=== PATIENT | female | born 1990 | race Caucasian/White ===

== ENCOUNTER 2016-09-02 16:17 | Emergency (ER) | payer OTHER ==
[~2016-09-02] VITALS: Ht 165.1 cm; Wt 84.0 kg
[~2016-09-02 16:17] MED LIST: BUDE100T PO; CLON.1 PO; SERO50TA4 PO; SUBO8MIS SL; ZOFR4TAB3 SL; ZOLO20CO PO
[2016-09-02 16:38] VITALS: BP 108/59; PULSE 97; RESP 18; TEMP 97.7; O2SAT 98
--- NOTE | 2016-09-02 16:48 | PD ---
HPI Chief Complaint: Psychiatric Symptoms Time Seen by Provider: 16:48 Travel History International Travel<30 days: No Contact w/Intl Traveler<30days: No Traveled to known affect area: No History of Present Illness HPI 26-year-old female with a history of bipolar disorder, IVDU, hepatitis C is brought to the emergency department for evaluation of suicidal ideations. Per the Childers Act report the patient was involved in an argument with her mother and said that she wants to kill herself. The patient denies suicidal or homicidal ideations. Denies any attempts to harm herself. Denies any ingestion substances in an attempt to harm herself. She is initially combative and aggressive with staff and is placed in restraints. She denies any physical complaints. Denies any chest pain, shortness of breath, abdominal pain, nausea , vomiting, diarrhea. No other complaints. PFSH Past Medical History Anxiety: Yes Depression: Yes Cardiovascular Problems: Yes (HTN) Diminished Hearing: No Gastrointestinal Disorders: Yes Hepatitis: Yes (B OR C) Hypertension: Yes Kidney Stones: Yes Integumentary: Yes (MRSA FACE) Immunizations Current: Yes ?: Unknown Menopausal: No : 0 Para: 0 Miscarriage: 0 : 0 Social History Alcohol Use: No Tobacco Use: Yes (1/2 PPD) Substance Use: No (FORMER) Allergies-Medications (Allergen,Severity, Reaction): Coded Allergies: No Known Allergies (Verified , 07/04/15) Reported Meds & Prescriptions Reported Meds & Active Scripts Active Zofran ODT (Ondansetron HCl) 4 Mg Tab 4 Mg SL Q6H PRN FOR NAUSEA/VOMITING Reported Suboxone 8 mg/2 mg 8 mg/2 mg Subl 2 Strip SL DAILY SUBLINGUAL STRIP. Catapres 0.1 mg (Clonidine HCl) 0.1 Mg Tab 1 Tab PO HS Zoloft (Sertraline HCl) 20 Mg/Ml Con 50 Mg PO DAILY Bupropion Hcl (Bupropion HCl) 100 Mg Tab 150 Mg PO DAILY Seroquel XR 50 mg (Quetiapine Fumarate) 50 Mg Tab 50 Mg PO HS Review of Systems Except as stated in HPI: all other systems reviewed are Neg Physical Exam Narrative GENERAL: Well-nourished and well-developed pleasant patient in no acute distress who is nontoxic appearing. SKIN: Warm and dry. HEAD: Normocephalic and atraumatic EYES: No injection, drainage, or hyphema noted. PERRLA. EOMI. ENT: No nasal drainage noted. Oropharynx is clear. NECK: Supple and the trachea is midline. CARDIOVASCULAR: Regular rate and rhythm. RESPIRATORY: Breath sounds are equal bilaterally with no accessory muscle use, wheezing, rhonchi, or crackles. GASTROINTESTINAL: Abdomen is soft, non-tender, and nondistended. MUSCULOSKELETAL: No obvious deformities, swelling, cyanosis, or ecchymosis is present throughout the upper and lower extremities. Patient has full range of motion without any signs of neurovascular compromise. NEUROLOGICAL: Awake, alert, and oriented. Normal speech and gait. Cranial nerves are grossly intact. Data Data Last Documented VS Vital Signs Date Time Temp Pulse Resp B/P Pulse Ox O2 Delivery O2 Flow Rate FiO2 09/02/16 16:38 97.7 97 18 108/59 98 Orders Restraints Violent (09/02/16 16:41) Complete Blood Count With Diff (09/02/16 16:42) Comprehensive Metabolic Panel (09/02/16 16:42) Psych Screen (09/02/16 16:42) Drug Screen, Random Urine (09/02/16 16:42) Alcohol (Ethanol) (09/02/16 16:42) Ed Urine Pregnancytest Poc (09/02/16 16:42) Haloperidol Inj (Haldol Inj) (09/02/16 17:00) Lorazepam Inj (Ativan Inj) (09/02/16 17:00) Diphenhydramine Inj (Benadryl Inj) (09/02/16 17:00) Labs Laboratory Tests Test 09/02/16 17:15 White Blood Count 5.3 TH/MM3 Red Blood Count 4.98 MIL/MM3 Hemoglobin 12.0 GM/DL Hematocrit 37.0 % Mean Corpuscular Volume 74.3 FL Mean Corpuscular Hemoglobin 24.1 PG Mean Corpuscular Hemoglobin 32.5 % Concent Red Cell Distribution Width 16.3 % Platelet Count 278 TH/MM3 Mean Platelet Volume 8.0 FL Neutrophils (%) (Auto) 61.7 % Lymphocytes (%) (Auto) 28.1 % Monocytes (%) (Auto) 4.4 % Eosinophils (%) (Auto) 4.9 % Basophils (%) (Auto) 0.9 % Neutrophils # (Auto) 3.2 TH/MM3 Lymphocytes # (Auto) 1.5 TH/MM3 Monocytes # (Auto) 0.2 TH/MM3 Eosinophils # (Auto) 0.3 TH/MM3 Basophils # (Auto) 0.0 TH/MM3 CBC Comment DIFF FINAL Differential Comment Sodium Level 139 MEQ/L Potassium Level 3.5 MEQ/L Chloride Level 104 MEQ/L Carbon Dioxide Level 24.9 MEQ/L Anion Gap 10 MEQ/L Blood Urea Nitrogen 11 MG/DL Creatinine 0.90 MG/DL Estimat Glomerular Filtration 76 ML/MIN Rate Random Glucose 94 MG/DL Calcium Level 9.5 MG/DL Total Bilirubin 0.5 MG/DL Aspartate Amino Transf 22 U/L (AST/SGOT) Alanine Aminotransferase 23 U/L (ALT/SGPT) Alkaline Phosphatase 69 U/L Total Protein 7.7 GM/DL Albumin 3.7 GM/DL Ethyl Alcohol Level LESS THAN 3 MG/DL MDM Medical Decision Making Medical Screen Exam Complete: Yes Emergency Medical Condition: Yes Differential Diagnosis Differential: Depression versus adjustment reaction versus anxiety versus PTSD versus psychosis NOS versus mood disorder NOS versus substance induced mood disorder versus ODD versus adjustment reaction versus schizophrenia versus bipolar disorder versus schizoaffective versus electrolyte abnormality Narrative Course Patient presents under a Childers act. Physical examination and vital signs are essentially unremarkable. Patient has no medical complaints to report. She was initially combative and was placed in restraints. She is administered Haldol 5 mg IM, Ativan 2 mg IM and Benadryl 50 mg IM. Psych screen has been ordered. The laboratory results are unremarkable for any acute abnormalities. The patient is medically cleared for psychiatric evaluation and disposition. Diagnosis Primary Impression: Mood disorder Adela Zuñiga Sep 02, 2016 16:48
[2016-09-02] MEDS ORDERED: LORazepam 2 MG/ML VIAL IM ONE (17:00)
[2016-09-02] MEDS ORDERED: diphenhydrAMINE HCL 50 MG/ML VIAL IM ONE (17:00)
[2016-09-02] MEDS ORDERED: HALOPERIDOL LACTATE 5 MG/ML AMP IM ONE (17:00)
[2016-09-02 17:54] LABS: AUTOMATED NEUTROPHIL # 3.2 TH/MM3 (1.8-7.7); BASOPHIL % 0.9 % (0.0-2.0); EOSINOPHIL # 0.3 TH/MM3 (0-0.4); EOSINOPHIL % 4.9 % (0.0-4.0); HEMO FLAGS DIFF FINAL; LYMPH % 28.1 % (9.0-44.0); LYMPHOCYTE # 1.5 TH/MM3 (1.0-4.8); MEAN CELL VOLUME 74.3 FL (80.0-100.0); MEAN CORPUSCULAR HEMOGLOBIN 24.1 PG (27.0-34.0); MEAN CORPUSCULAR HGB CONC 32.5 % (32.0-36.0); MONO % 4.4 % (0.0-8.0); NEUT % 61.7 % (16.0-70.0); PLATELET COUNT 278 TH/MM3 (150-450); RED BLOOD COUNT 4.98 MIL/MM3 (4.00-5.30); RED CELL DISTRIBUTION WIDTH 16.3 % (11.6-17.2); WHITE BLOOD COUNT 5.3 TH/MM3 (4.0-11.0)
[2016-09-02 18:24] LABS: ALT (GPT) 23 U/L (10-53)
[2016-09-02 18:27] LABS: ALKALINE PHOSPHATASE 69 U/L (45-117); TOTAL BILIRUBIN ADULT 0.5 MG/DL (0.2-1.0)
[2016-09-02 18:37] LABS: ANION GAP 10 MEQ/L (5-15); AST (GOT) 22 U/L (15-37); BICARBONATE 24.9 MEQ/L (21.0-32.0); BLOOD UREA NITROGEN 11 MG/DL (7-18); CHLORIDE 104 MEQ/L (98-107); GLOMERULAR FILTRATION RATE 76 ML/MIN (>89); POTASSIUM 3.5 MEQ/L (3.5-5.1); SODIUM (NA) 139 MEQ/L (136-145)
[2016-09-02 19:10] VITALS: BP 110/67; PULSE 72; RESP 16; O2SAT 99
[2016-09-03 04:29] LABS: AMPHETAMINE, URINE NEG (NEG); BARBITURATES, URINE NEG (NEG); COCAINE, URINE POS (NEG)
[2016-09-03 06:20] VITALS: BP 100/57; PULSE 55; RESP 17; O2SAT 98
[2016-09-03 10:41] VITALS: BP 120/63; PULSE 65; RESP 16; O2SAT 97
[2016-09-03] MEDS ORDERED: IBUPROFEN 600 MG TAB PO ONE (12:00)
--- NOTE | 2016-09-03 13:27 | PD ---
History of Present Illness Chief Complaint: Psychiatric Symptoms Time Seen by Provider: 13:15 Travel History International Travel<30 Days: No Contact w/Intl Traveler<30days: No Known affected area: No Legal Status Legal Status: Childers Act Childers Act Signed By: Darron Childers Act Comment: 2016 @ 8929 History of Present Illness: 26-year-old female who got into a verbal argument with her mother last night and threatened to kill herself. Mother called police and she was Childers acted for making these threats. She was also apparently very uncooperative, physically aggressive, requiring physical restraints in the emergency department. Patient states she argues with her mother frequently and that she does not hold down a job or support herself. Second problem is that the patient has a significant history of drug abuse, including IV drug abuse. She does not wish to stop using drugs and does not wish to have assistance for this issue at this time. This physician does recommend her for [facility] but explained this is not a facility at [facility] which is licensed for detox or rehabilitation. At this time the patient is verbally gerardo for safety. She denies any suicidal or homicidal ideation, plan or intent. Her cognition is intact and she has no psychotic symptoms. PFSH Past Medical History Anxiety: Yes Depression: Yes Cardiovascular Problems: Yes (HTN) Diminished Hearing: No Gastrointestinal Disorders: Yes Hepatitis: Yes (B OR C) Hypertension: Yes Kidney Stones: Yes Integumentary: Yes (MRSA FACE) Immunizations Current: Yes Tetanus Vaccination: Unknown Influenza Vaccination: No ?: Unknown Menopausal: No : 0 Para: 0 Miscarriage: 0 : 0 Psychiatric History Psychiatric History Hx Psychiatric Treatment: BI- POLAR DISORDER PER PATIENT STATEMENT. The patient shows no significant evidence of bipolar depression or tye at this time. History of Inpatient Treatment: Yes Guns or firearms in home: No Social History Hx Alcohol Use: No Hx Tobacco Use: Yes (1/2 PPD) Hx Substance Use: Yes Substance Use Type: Heroin, Synth Opiates-Pain Pills Hx of Substance Use Treatment: Yes Allergies-Medications (Allergen,Severity, Reaction): Coded Allergies: No Known Allergies (Verified , 09/03/16) Per pt. Reported Meds & Prescriptions Reported Meds & Active Scripts Active No Active Prescriptions or Reported Medications Review of Systems Except as stated in HPI: all other systems reviewed are Neg Exam Alert: Yes [place]: Person, Place, Date, Situation Mood: Calm Affect: Appropriate Speech: Clear, Logical Eye Contact: Normal Memory Intact: Immediate, Recent, Remote Insight/Judgement Impaired but adequate. MDM Medical Decision Making Medical Record Reviewed: Yes Assessment/Plan Childers act is being lifted and patient is being discharged home. This physician feels it is counter therapeutic to admit the patient when she does not want assistance with alcohol and drug abuse which appears to be a primary problem. Her relationship issues with her mother can be worked out on an outpatient basis. Despite the patient's recent aggression and suicidal threats, this physician feels it is counter therapeutic to admit her. Orders Restraints Violent (09/02/16 16:41) Complete Blood Count With Diff (09/02/16 16:42) Comprehensive Metabolic Panel (09/02/16 16:42) Psych Screen (09/02/16 16:42) Drug Screen, Random Urine (09/02/16 16:42) Alcohol (Ethanol) (09/02/16 16:42) Ed Urine Pregnancytest Poc (09/02/16 16:42) Haloperidol Inj (Haldol Inj) (09/02/16 17:00) Lorazepam Inj (Ativan Inj) (09/02/16 17:00) Diphenhydramine Inj (Benadryl Inj) (09/02/16 17:00) Diet Regular Basic (09/03/16 Breakfast) Diet Regular Basic (09/03/16 Lunch) Ibuprofen (Motrin) (09/03/16 12:00) Results Vital Signs Date Time Temp Pulse Resp B/P Pulse Ox O2 Delivery O2 Flow Rate FiO2 09/03/16 10:41 65 16 120/63 97 Room Air 09/03/16 06:20 55 17 100/57 98 Room Air 09/02/16 19:10 72 16 110/67 99 Room Air 09/02/16 16:38 97.7 97 18 108/59 98 Laboratory Tests Test 09/02/16 09/03/16 17:15 03:25 White Blood Count 5.3 Red Blood Count 4.98 Hemoglobin 12.0 Hematocrit 37.0 Mean Corpuscular Volume 74.3 Mean Corpuscular Hemoglobin 24.1 Mean Corpuscular Hemoglobin 32.5 Concent Red Cell Distribution Width 16.3 Platelet Count 278 Mean Platelet Volume 8.0 Neutrophils (%) (Auto) 61.7 Lymphocytes (%) (Auto) 28.1 Monocytes (%) (Auto) 4.4 Eosinophils (%) (Auto) 4.9 Basophils (%) (Auto) 0.9 Neutrophils # (Auto) 3.2 Lymphocytes # (Auto) 1.5 Monocytes # (Auto) 0.2 Eosinophils # (Auto) 0.3 Basophils # (Auto) 0.0 CBC Comment DIFF FINAL Differential Comment Sodium Level 139 Potassium Level 3.5 Chloride Level 104 Carbon Dioxide Level 24.9 Anion Gap 10 Blood Urea Nitrogen 11 Creatinine 0.90 Estimat Glomerular Filtration 76 Rate Random Glucose 94 Calcium Level 9.5 Total Bilirubin 0.5 Aspartate Amino Transf 22 (AST/SGOT) Alanine Aminotransferase 23 (ALT/SGPT) Alkaline Phosphatase 69 Total Protein 7.7 Albumin 3.7 Ethyl Alcohol Level LESS THAN 3 Urine Opiates Screen NEG Urine Barbiturates Screen NEG Urine Amphetamines Screen NEG Urine Benzodiazepines Screen NEG Urine Cocaine Screen POS Urine Cannabinoids Screen NEG Diagnosis Primary Impression: Adjustment disorder with mixed disturbance of emotions and conduct Additional Impression: Substance addiction Prescriptions No Active Prescriptions or Reported Meds Problem Qualifiers Salvatore Leavitt MD Sep 03, 2016 13:27
== END 2016-09-03 13:36 | disposition home or self-care (01) ==
LOC: NEDAMB 16:17 → NEPJ 09-03 13:36
DX: F43.25 Adjustment disorder with mixed disturbance of emotions and conduct (principal); F19.20 Other psychoactive substance dependence, uncomplicated
CPT/HCPCS: 80053; 80307; 84703; 85025; 96372; 99285; J1200; J1630; J2060

== ENCOUNTER 2017-04-12 08:38 | Emergency (ER) | payer OTHER | END 2017-04-12 09:43 | disposition home or self-care (01) | LOC: HOBED 08:38 | DX: O99.322 Drug use complicating pregnancy, second trimester (principal); F11.10 Opioid abuse, uncomplicated; O98.412 Viral hepatitis complicating pregnancy, second trimester; B18.2 Chronic viral hepatitis C; O99.342 Other mental disorders complicating pregnancy, second trimester; F32.9 Major depressive disorder, single episode, unspecified; Z3A.25 25 weeks gestation of pregnancy | CPT/HCPCS: 99283 ==

== ENCOUNTER 2017-04-18 12:36 | Emergency (ER) | payer OTHER ==
[~2017-04-18 12:36] MED LIST changes: +AUGM500T7 PO; -BUDE100T PO; +CITA10TA4 PO; +CITA20TA4 PO; -CLON.1 PO; -SERO50TA4 PO; -SUBO8MIS SL; -ZOFR4TAB3 SL; -ZOLO20CO PO
[2017-04-18 13:53] LABS: HEMATOCRIT 28.7 % (35.0-46.0); HEMOGLOBIN 9.7 GM/DL (11.6-15.3); MEAN CORPUSCULAR HEMOGLOBIN 27.1 PG (27.0-34.0); MEAN CORPUSCULAR HGB CONC 33.9 % (32.0-36.0); MEAN PLATELET VOLUME 7.2 FL (7.0-11.0); PLATELET COUNT 327 TH/MM3 (150-450); RED BLOOD COUNT 3.59 MIL/MM3 (4.00-5.30); RED CELL DISTRIBUTION WIDTH 15.4 % (11.6-17.2)
[2017-04-18 13:57] LABS: AMORPHOUS SEDIMENT, URINE MOD; BACTERIA, URINE RARE /hpf; BILIRUBIN, URINE NEG (NEG); BLOOD, URINE NEG (NEG); GLUCOSE,URINE NEG (NEG); KETONE, URINE NEG (NEG); NITRITE,URINE NEG (NEG); SQUAMOUS EPITHELIAL CELL URINE 11 /hpf (0-5); TRANSITIONAL EPI CELLS, URINE <1 /hpf; URINE COLOR YELLOW (YELLW/STRAW); URINE LEUKOCYTE ESTERASE LARGE (NEG)
--- NOTE | 2017-04-18 14:19 | PD ---
HPI Chief Complaint leg swelling Date Seen: Apr 18, 2017 Travel History International Travel<30 Days: No Contact w/Intl Traveler<30Days: No History of Present Illness HPI Ms. Riley is a 26 yo [id number] patient of [facility] at 26 5/7 weeks who presents with concern for increased fatigue and lower extremity swelling. Background- Patient currently is under [facility] after being Childers Acted by her mother ~7 days ago. Patient reports IV Dilaudid and crack cocaine abuse with last use 10 days ago. Patient takes Subutex 8mg BID chronically ( prescribed by Dr. Berkowitz); she was clean for ~1 year before relapsing this past year. Patient has lost ~60 lbs in the last year due to drug use, not eating as much, and "moving around." Patient has been at [facility] for the past week; she has not taken Subutex for this period. 4-5 days ago, patient has started feeling that her legs were more swollen, she has felt faint, she has been anxious, and she has not been sleeping much. Patient has occasionally taken Vistaril and Clonidine PRN for these symptoms without relief. Patient also reports headache and visual blurriness during this period. Patient also reports intermittent back pain and nausea. Patient states that her legs are ~15% more swollen than usual; they may have been swollen longer but she has not noticed this. Patient reports normal movement. No vaginal bleeding or discharge. Patient reports history of anemia and Hepatitis C. Patient is not taking iron supplementation. Patient has not had evaluation for Hep C but states that her LFT's have been normal. Weeks Gestation: 26 Para: 0 : 2 Miscarriage: 1 History Past Medical History Narrative Medical Substance abuse -Crack -IV dilaudid Tobacco abuse Anemia Hep C Obstetric History Obstetric History Past Surgical History Surgical History: No Previous Surgery Family History Family History: Negative Social History Narrative Social History 5 cigarettes/day; down from 03/25 PPD Subutex 8mg BID IV dilaudid- last 10 days ago smokes crack cocaine sometimes- last 10 days ago Alcohol Use: No Tobacco Use: Yes Substance Abuse: Yes Allergies-Medications (Allergen,Severity, Reaction): Coded Allergies: No Known Allergies (Verified Adverse Reaction, Unknown, 04/12/17) Per pt. Home Meds Active Scripts Nitrofurantoin Monohydrate Macrocrystals (Macrobid) 100 Mg Capsule, 100 MG PO BID for Infection, #10 CAP 0 Refills Prov:Jose Currie MD, R3 04/18/17 Amoxicillin-Clavulanate (Augmentin) 500-125 mg Tab, 500 MG PO TID for Infection , #15 TAB 0 Refills Prov:Dimas Baer MD 04/07/17 Citalopram (Citalopram) 20 Mg Tab, 20 MG PO DAILY for Control Depression, #30 TAB 5 Refills Prov:Dimas Baer MD 03/18/17 Citalopram (Citalopram) 10 Mg Tab, 10 MG PO DAILY for Control Depression, #7 TAB 0 Refills Prov:Dimas Baer MD 03/18/17 Review of Systems General / Constitutional: No: Fever Eyes: Blurred Vision (recent over past several days when watching TV) HENT: Headaches (bilateral over past several days) Cardiovascular: No: Chest Pain or Discomfort Respiratory: No: Short of Breath Gastrointestinal: No: Nausea, Vomiting, Abdominal Pain Genitourinary: No: Urgency, Dysuria Musculoskeletal: No: Weakness Skin: No Rash, No Itching Neurologic: No: Weakness, Dizziness Psychiatric: No: Anxiety, Depression Physical Exam BP 90's/50's HR normal Narrative GENERAL: Well-nourished, well-developed patient. SKIN: Warm and dry. HEAD: Normocephalic and atraumatic. EYES: No scleral icterus. No injection or drainage. ENT: No nasal drainage noted. Mucous membranes pink. Airway patent. NECK: No thyromegaly or lymphadenopathy CARDIOVASCULAR: Regular rate and rhythm without murmurs. Normal perfusion RESPIRATORY: CTAB; normal rate ABDOMEN/GI: Abdomen soft, non-tender, bowel sounds present, no rebound, no guarding Gravid EXTREMITIES: Bilateral LE's large with abrupt change without swelling in ankles. Not suggestive of pitting edema . NEUROLOGICAL: Awake and alert. Motor and sensory function grossly within normal limits. GENITOURINARY: Uterine Contractions: None FHT's: Category: 1 Baseline: 140 Reactive: Y Variability: Mod Decels: None Data Data Vital Signs Reviewed: Yes Orders Orders Vital Signs (Adult) .ON ADMISSION (04/18/17 13:35) ^ Labor Status (04/18/17 13:35) Urinalysis - C+S If Indicated (04/18/17 13:35) ^ Non Stress Test (04/18/17 13:35) Cbc No Diff, Includes Plts (04/18/17 13:35) Comprehensive Metabolic Panel (04/18/17 13:35) Uric Acid (04/18/17 13:35) Labs Laboratory Tests Test 04/18/17 13:36 White Blood Count 14.0 Red Blood Count 3.59 Hemoglobin 9.7 Hematocrit 28.7 Mean Corpuscular Volume 80.0 Mean Corpuscular Hemoglobin 27.1 Mean Corpuscular Hemoglobin Concent 33.9 Red Cell Distribution Width 15.4 Platelet Count 327 Mean Platelet Volume 7.2 Urine Color YELLOW Urine Turbidity CLOUDY Urine pH 7.0 Urine Specific [place] 1.015 Urine Protein NEG Urine Glucose (UA) NEG Urine Ketones NEG Urine Occult Blood NEG Urine Nitrite NEG Urine Bilirubin NEG Urine Urobilinogen LESS THAN 2.0 Urine Leukocyte Esterase LARGE Urine RBC 2 Urine WBC 7 Urine Squamous Epithelial Cells 11 Urine Transitional Epithelial Cells <1 Urine Amorphous Sediment MOD Urine Bacteria RARE Microscopic Urinalysis Comment CULT NOT INDICATED MDM Medical Record Reviewed: Yes Narrative Course / MDM Ms. Riley is a 26 yo [id number] patient of [facility] at 26 5/7 weeks who presents with concern for increased fatigue and lower extremity swelling; also reported headache, vision changes, anxiety -Normotensive; stable -PE normal -LE swelling not suggestive of pitting edema; seems similar to that associated with rapid weight loss -PMH Anemia, Hep C, IVDU, tobacco abuse Plan: -Will monitor EFM -Will check CBC, CMP, UA, uric acid Interval: CBC- mild anemia; no thrombocytopenia CMP- No LFT elevations or Cr elevations Uric acid- within normal limits UA- Leukocyte esterase and 7 WBC, some bacteria Updated Plan: -Will plan to empirically treat for asymptomatic UTI with Macrobid 100mg BID and will follow culture -Will give ferrous sulfate for anemia -Patient instructed to return to OB ED with any worsening swelling, other symptom worsening, concern for fetus, or vaginal symptoms -Patient will f/u with [facility] Diagnosis Diagnosis: Primary Impression: Leg swelling in in second trimester Additional Impression: 26 weeks gestation of Disposition: DISCHARGE HOME Condition: Stable Scripts Nitrofurantoin Monohydrate Macrocrystals (Macrobid) 100 Mg Capsule 100 MG PO BID for Infection, #10 CAP 0 Refills Prov: Jose Currie MD, R3 04/18/17 Ferrous Sulfate (Ferrous Sulfate) 325 Mg (65 Mg Iron) Tablet 325 MG PO BIDPC for Nutritional Supplement, #60 TAB 0 Refills Prov: Jose Currie MD, R3 04/18/17 Jose Currie MD, R3 Apr 18, 2017 14:19
[2017-04-18 14:28] LABS: ALBUMIN 2.6 GM/DL (3.4-5.0); AST (GOT) 17 U/L (15-37); BICARBONATE 26.9 MEQ/L (21.0-32.0); BLOOD UREA NITROGEN 12 MG/DL (7-18); CALCIUM 9.2 MG/DL (8.5-10.1); CHLORIDE 104 MEQ/L (98-107); CREATININE 0.57 MG/DL (0.50-1.00); GLOMERULAR FILTRATION RATE 128 ML/MIN (>89); GLUCOSE,RANDOM 85 MG/DL (74-106); SODIUM (NA) 139 MEQ/L (136-145)
[2017-04-18 14:36] LABS: ALKALINE PHOSPHATASE 62 U/L (45-117); ALT (GPT) 17 U/L (10-53); TOTAL BILIRUBIN ADULT 0.2 MG/DL (0.2-1.0); TOTAL PROTEIN 6.6 GM/DL (6.4-8.2)
[2017-04-18 14:41] VITALS: BP 95/55; PULSE 59
[2017-04-18] MEDS ORDERED: MACR100C2 PO ×3 (14:55→15:11)
[2017-04-18] MEDS ORDERED: FERR325T18 PO (15:11)
== END 2017-04-18 15:59 | disposition home or self-care (01) ==
LOC: HOBED 12:36
DX: O26.92 Pregnancy related conditions, unspecified, second trimester (principal); M79.89 Other specified soft tissue disorders; O99.012 Anemia complicating pregnancy, second trimester; O26.892 Other specified pregnancy related conditions, second trimester; B19.20 Unspecified viral hepatitis C without hepatic coma; O99.332 Smoking (tobacco) complicating pregnancy, second trimester; Z3A.26 26 weeks gestation of pregnancy
CPT/HCPCS: 59025; 80053; 81001; 84550; 85027

== ENCOUNTER → 2017-04-30 | Outpatient (CLI) | payer OTHER ==
[~2017-04-30] MED LIST changes: -AUGM500T7 PO; +FERR325T18 PO; +MACR100C2 PO
== END ==
LOC: HPND 10:30
PROVIDERS: ATTEND Obstetrics & Gynecology
DX: O99.322 Drug use complicating pregnancy, second trimester (principal); O99.332 Smoking (tobacco) complicating pregnancy, second trimester
CPT/HCPCS: 76811; 76825; 76827; 93325

== ENCOUNTER 2017-05-07 16:17 | Observation (INO) | payer OTHER ==
[~2017-05-07] VITALS: Ht 172.7 cm; Wt 91.0 kg
[2017-05-07] MEDS ORDERED: SODIUM CHLORIDE 0.9% FLUSH 10 ML FLUSH IV FLUSH PRN ×2 (17:30→17:45)
--- NOTE | 2017-05-07 17:34 | HHI.HP ---
HPI Chief Complaint swelling and pain in both legs Date Seen: May 07, 2017 Time Seen: 17:20 Travel History International Travel<30 Days: No Contact w/Intl Traveler<30Days: No Known Affected Area: No History of Present Illness HPI 26-year-old white female at 29-[address] [facility] and presents complaining of 3 week history of increasing and severe swelling in both legs and severe pain now developing in her legs and shooting up in her thighs., She has noted some slight chest pain and the last 4 days with a little shortness of breath at night. She has some difficulty sleeping laying flat. She has no history of heart disease however she does have a history of IV drug use[l Dilaudid] over the last 8 years she's on Subutex now trying to detox.. heart rate tracing is reactive and no contractions she has no bleeding or leakage of fluid or abdominal pain. Patient also complains of possible tooth abscess on the left side lower jaw Weeks Gestation: 29 Para: 0 : 2 Miscarriage: 1 History Past Medical History Narrative Medical Positive for hepatitis C Depression--on Celexa Obstetric History Obstetric History 1 early loss no D&C Social History Narrative Social History Patient currently on Subutex and then project warm and trying to detoxified off of Dilaudid that she's been using for the last 8 years 3-4 times a day Alcohol Use: No Tobacco Use: Yes Substance Abuse: Yes Allergies-Medications (Allergen,Severity, Reaction): Coded Allergies: No Known Allergies (Verified Adverse Reaction, Unknown, 04/21/17) Per pt. Home Meds Active Scripts Nitrofurantoin Monohydrate Macrocrystals (Macrobid) 100 Mg Capsule, 100 MG PO BID for Infection, #10 CAP 0 Refills Prov:Jose Currie MD, R3 04/18/17 Ferrous Sulfate (Ferrous Sulfate) 325 Mg (65 Mg Iron) Tablet, 325 MG PO BIDPC for Nutritional Supplement, #60 TAB 0 Refills Prov:Jose Currie MD, R3 04/18/17 Citalopram (Citalopram) 20 Mg Tab, 20 MG PO DAILY for Control Depression, #30 TAB 5 Refills Prov:Dimas Baer MD 03/18/17 Citalopram (Citalopram) 10 Mg Tab, 10 MG PO DAILY for Control Depression, #7 TAB 0 Refills Prov:Dimas Baer MD 03/18/17 Review of Systems General / Constitutional: No: Fever, Weight Gain, Chills, Other Eyes: No: Diploplia, Blurred Vision, Visual changes, Pain, Photophobia HENT: Headaches, No: Vertigo, Lightheadedness Cardiovascular: Chest Pain or Discomfort, No: Irregular Rhythm, Palpitations, Tachycardia, Syncope, Varicosities, Edema, Cyanosis Respiratory: Short of Breath, No: Cough, Other Gastrointestinal: No: Nausea, Vomiting, Diarrhea Genitourinary: No: Decreased Urinary Output, Oliguria Musculoskeletal: Cramping, Edema, Pain, No: Limited ROM, Weakness Skin: No Rash, No Itching, No Dryness, No Lumps, No Change in Pigmentation, No Change in Nails, No Alopecia, No Lesions Neurologic: No: Weakness, Dizziness, Syncope, Focal Abnormalities, Coordination Problem, Headache, Slurred Speech, Seizures Psychiatric: No: Depression, Suicidal Ideations, Homicidal Ideation Endocrine: No: Heat Intolerance, Cold Intolerance, Polydipsia, Polyuria, Other Physical Exam Narrative GENERAL: Well-nourished, well-developed patient. SKIN: Warm and dry. HEAD: Normocephalic and atraumatic. EYES: No scleral icterus. No injection or drainage. ENT: No nasal drainage noted. Mucous membranes pink. Airway patent. NECK: Supple, trachea midline. No JVD. CARDIOVASCULAR: Regular rate and rhythm without murmurs, gallops, or rubs. RESPIRATORY: Breath sounds equal bilaterally. No accessory muscle use. Minimal expiratory wheeze noted BREASTS: Bilateral exam showed no masses , no retractions, no nipple discharge. ABDOMEN/GI: Abdomen soft, non-tender, bowel sounds present, no rebound, no guarding Gravid to [29-] weeks size Fundal Height: [29-] GENITOURINARY: Membranes: [intact ] Uterine Contractions: [none-] FHT's: Category: [1-] Baseline: [-133] Reactive: [R-] Variability: [-mod] Decels: [none-] EXTREMITIES: No cyanosis or edema. BACK: Nontender without obvious deformity. No CVA tenderness. NEUROLOGICAL: Awake and alert. Motor and sensory grossly within normal limits. Five out of 5 muscle strength in all muscle groups. Normal speech. Caprini VTE Risk Assessment Caprini VTE Risk Assessment: No/Low Risk (score <= 1) Caprini Risk Assessment Model Point Value = 1 Point Value = 2 Point Value = 3 Point Value = 5 Age 41-60 Minor surgery BMI > 25 kg/m2 Swollen legs Varicose veins or History of unexplained or recurrent spontaneous Oral contraceptives or hormone replacement Sepsis (< 1 month) Serious lung disease, including pneumonia (< 1 month) Abnormal pulmonary function Acute myocardial infarction Congestive heart failure (< 1 month) History of inflammatory bowel disease Medical patient at bed rest Age 61-74 Arthroscopic surgery Major open surgery (> 45 min) Laparoscopic surgery (> 45 min) Malignancy Confined to bed (> 72 hours) Immobilizing plaster cast Central venous access Age >= 75 History of VTE Family history of VTE Factor V Leiden Prothrombin [id number] Lupus anticoagulant Anticardiolipin antibodies Elevated serum homocysteine Heparin-induced thrombocytopenia Other congenital or acquired thrombophilia Stroke (< 1 month) Elective arthroplasty Hip, pelvis, or leg fracture Acute spinal cord injury (< 1 month) Prophylaxis Regimen Total Risk Factor Score Risk Level Prophylaxis Regimen 0-1 Low Early ambulation 2 Moderate Order ONE of the following: *Sequential Compression Device (SCD) *Heparin 5000 units SQ BID 3-4 Higher Order ONE of the following medications: *Heparin 5000 units SQ TID *Enoxaparin/Lovenox 40 mg SQ daily (WT < 150 kg, CrCl > 30 mL/min) *Enoxaparin/Lovenox 30 mg SQ daily (WT < 150 kg, CrCl > 10-29 mL/min) *Enoxaparin/Lovenox 30 mg SQ BID (WT < 150 kg, CrCl > 30 mL/min) AND/OR *Sequential Compression Device (SCD) 5 or more Highest Order ONE of the following medications: *Heparin 5000 units SQ TID (Preferred with Epidurals) *Enoxaparin/Lovenox 40 mg SQ daily (WT < 150 kg, CrCl > 30 mL/min) *Enoxaparin/Lovenox 30 mg SQ daily (WT < 150 kg, CrCl > 10-29 mL/min) *Enoxaparin/Lovenox 30 mg SQ BID (WT < 150 kg, CrCl > 30 mL/min) AND *Sequential Compression Device (SCD) Data Data Orders Orders Vital Signs (Adult) .ON ADMISSION (05/07/17 17:) ^ Labor Status (05/07/17:) ^ Non Stress Test (05/07/17:) Cbc No Diff, Includes Plts (05/07/17:) Comprehensive Metabolic Panel (05/07/17 17:) Hepatitis Profile (05/07/17:) Prothrombin Time / Inr (Pt) (05/07/17:) Troponin I (05/07/17:) Ckmb (Isoenzyme) Profile (05/07/17 17:) Urinalysis - C+S If Indicated (05/07/17:) Uric Acid (05/07/17:) Electrocardiogram (05/07/17 ) Place In Observation (05/07/17 ) Vital Signs (Adult) FIGUEROA.Z4P-HNAIH AWAKE (05/07/17:17) Heart FIGUEROA.QSHIFT (05/07/17 17:17) Activity Oob Ad Debbie (05/07/17 17:17) Acetaminophen (Tylenol) (05/07/17 17:30) Nmjsgfga-Map-Kqhio-Iron Prenat (Stuartna (05/08/17 09:00) Sodium Chloride 0.9% Flush (Ns Flush) (05/07/17 21:00) Sodium Chloride 0.9% Flush (Ns Flush) (05/07/17 17:30) Ob/Psych Drug Screen, Urine (05/07/17 17:17) Diet Regular Basic (05/07/17 Dinner) Ob (2e) Additional Admit Info (05/07/17 17:18) Labs Urine dip OB ED is negative Assessment/Plan Assessment and Plan Patient is 26-year-old white female Ab1 29-30 weeks who [facility] a [facility] and presents complaining of severe leg swelling and pain. She is known IV drug user and is on Subutex now she is a project warm patient she has no obstetric problems this time baby looks good on the monitor and no contractions have she does have massive edema and both legs below the knee particularly but some eqprc-obs-yetw. She says this developed in the last 3 weeks. Last 4 days she's had some chest pain and shortness of breath., Also positive history of hepatitis C Impression--29-40 week intrauterine history of IV drug use now with fluid overload massive edema in the legs patient is currently on Subutex and is a patient a project warm, month ago they can contact Dr. Méndez about her but for logistical reasons she could not get in to see her. Plan--admit to observation, check CBC CMP cardiac enzymes troponin, EKG, echocardiogram, we will ask Dr. Méndez for any additional studies that she feels necessary. The likelihood consult medicine/cardiology Ryan Flynn II, MD May 07, 2017 17:34
[2017-05-07] MEDS ORDERED: ONDANSETRON HCL 4 MG/2 ML VIAL IV PUSH PRN (17:45)
[2017-05-07 18:45] LABS: HEMATOCRIT 26.8 % (35.0-46.0); HEMOGLOBIN 9.8 GM/DL (11.6-15.3); MEAN CORPUSCULAR HEMOGLOBIN 29.5 PG (27.0-34.0); MEAN PLATELET VOLUME 7.2 FL (7.0-11.0); PLATELET COUNT 331 TH/MM3 (150-450); RED BLOOD COUNT 3.31 MIL/MM3 (4.00-5.30); RED CELL DISTRIBUTION WIDTH 14.9 % (11.6-17.2); WHITE BLOOD COUNT 9.5 TH/MM3 (4.0-11.0)
[2017-05-07 18:50] LABS: MEAN CORPUSCULAR HGB CONC 36.4 % (32.0-36.0)
[2017-05-07 18:52] LABS: INTERNATIONAL NORMALIZED RATIO 0.9 RATIO; PROTHROMBIN TIME - PATIENT 9.4 SEC (9.8-11.6)
[2017-05-07 18:54] LABS: ALBUMIN 2.4 GM/DL (3.4-5.0); ALT (GPT) 13 U/L (10-53); AST (GOT) 17 U/L (15-37); BICARBONATE 28.6 MEQ/L (21.0-32.0); BLOOD UREA NITROGEN 12 MG/DL (7-18); CALCIUM 9.2 MG/DL (8.5-10.1); CHLORIDE 102 MEQ/L (98-107); CREATININE 0.54 MG/DL (0.50-1.00); GLOMERULAR FILTRATION RATE 136 ML/MIN (>89); GLUCOSE,RANDOM 79 MG/DL (74-106); SODIUM (NA) 139 MEQ/L (136-145)
[2017-05-07 18:57] LABS: AMORPHOUS SEDIMENT, URINE RARE; BACTERIA, URINE MOD /hpf; BILIRUBIN, URINE NEG (NEG); BLOOD, URINE NEG (NEG); GLUCOSE,URINE NEG (NEG); KETONE, URINE NEG (NEG); NITRITE,URINE NEG (NEG); SQUAMOUS EPITHELIAL CELL URINE 2 /hpf (0-5); URINE COLOR YELLOW (YELLW/STRAW); URINE LEUKOCYTE ESTERASE TRACE (NEG)
[2017-05-07 18:59] LABS: ALKALINE PHOSPHATASE 80 U/L (45-117); TOTAL BILIRUBIN ADULT 0.1 MG/DL (0.2-1.0); TOTAL PROTEIN 6.8 GM/DL (6.4-8.2); TROPONIN I LESS THAN 0.02 NG/ML (0.02-0.05)
--- NOTE | 2017-05-07 19:03 | RADRPT ---
EXAM DATE/TIME: 05/07/2017 18:24 [place] COMPARISON: No previous studies available for comparison. INDICATIONS : Bilateral leg swelling. MEDICAL HISTORY : . Renal calculi. Hypertension. Depression. Anxiety. Hepatitis. MRSA. SURGICAL HISTORY : None. ENCOUNTER: Subsequent ACUITY: 1 day PAIN SCORE: 4/10 LOCATION: Bilateral legs. TECHNIQUE: Venous ultrasound of the left and right leg was performed from the inguinal ligament to the proximal calf. Real-time, color Doppler and spectral tracing, compression and augmentation techniques were us ed. FINDINGS: RIGHT LEG: There is normal compressibility of the deep venous system from the inguinal region to the proximal ca lf. No echogenic clot is seen in the lumen of the common femoral, femoral, popliteal, and posterior tibial veins. There is a normal response of the venous system to proximal and distal augmentation an d respiration. Multiple lymph nodes are present in the right groin the largest measures 4.3 cm in si ze. LEFT LEG: There is normal compressibility of the deep venous system from the inguinal region to the proximal ca lf. No echogenic clot is seen in the lumen of the common femoral, femoral, popliteal, and posterior tibial veins. There is a normal response of the venous system to proximal and distal augmentation an d respiration. CONCLUSION: No DVT and there are nonspecific lymph nodes in the right groin with edema involving both lower extre mitiesDenver Kitchen MD on May 07, 2017 at 19:00 Board Certified Radiologist. This report was verified electronically.
[2017-05-07 19:45] VITALS: PULSE 64
[2017-05-07 19:48] VITALS: BP 100/53; PULSE 62; RESP 18; TEMP 97.9
[2017-05-07] MEDS ORDERED: SODIUM CHLORIDE 0.9% FLUSH 10 ML FLUSH IV FLUSH SCH (21:00)
[2017-05-07] MEDS: ACETAMINOPHEN 325 MG TAB PO PRN (21:07)
[2017-05-07] MEDS: DOCUSATE SODIUM 50 MG/SENNA 8.6 MG TAB PO PRN (21:07)
[2017-05-07] MEDS: BUPRENORPHINE HCL 8 MG SUBLINGUAL TAB SL SCH (21:07)
[2017-05-08] VITALS (12 sets, daily range): BP systolic 102–120; BP diastolic 49–61; PULSE 63–82; RESP 16–20; TEMP 97.9–98.2
[2017-05-08] MEDS: CEPHALEXIN MONOHYDRATE 250 MG CAP PO SCH ×4 (06:00→18:19)
[2017-05-08] MEDS: NICOTINE 14 MG/24 HR PATCH T-DERMAL SCH ×2 (09:00→19:27)
[2017-05-08] MEDS: SODIUM CHLORIDE 0.9% FLUSH 10 ML FLUSH IV FLUSH SCH ×2 (09:00→21:00)
[2017-05-08] MEDS: CITALOPRAM HYDROBROMIDE 20 MG TAB PO SCH (09:15)
[2017-05-08] MEDS: MULTIVIT/MIN/PREN/FOL AC/IRON PRENATAL TAB PO SCH (09:15)
[2017-05-08] MEDS: BUPRENORPHINE HCL 8 MG SUBLINGUAL TAB SL SCH ×2 (09:15→21:26)
[2017-05-08] MEDS: ASPIRIN 81 MG CHEW TAB CHEW SCH (09:15)
[2017-05-08] MEDS: DOCUSATE SODIUM 50 MG/SENNA 8.6 MG TAB PO PRN ×2 (09:23→21:26)
[2017-05-08 09:25] LABS: HEPATITIS A AB IGM NEGATIVE (NEGATIVE); HEPATITIS B CORE AB IGM NEGATIVE (NEGATIVE); HEPATITIS B SURFACE ANTIGEN NEGATIVE (NEGATIVE); HEPATITIS C AB IgG REACTIVE (NEGATIVE)
--- NOTE | 2017-05-08 10:16 | PD.OB.ANTE ---
Subjective Interval History Patient seen and examined this morning. Patient states that she is doing ok. Having leg and thigh pain to the touch, even making socks uncomfortable. Otherwise no other complaints. Antepartum ROS: Reports: movement normal, Denies: Loss of fluid, Vaginal bleeding, Contractions Objective Vital Signs Vital Signs Date Time Temp Pulse Resp B/P (MAP) Pulse Ox O2 Delivery O2 Flow Rate FiO2 05/08/17 09:15 16 05/08/17 09:15 97.9 05/08/17 09:10 66 111/49 (69) 05/08/17 00:11 98.1 05/08/17 00:11 18 05/08/17 00:10 72 120/56 (77) 05/07/17 23:00 18 05/07/17 19:48 62 100/53 (69) 05/07/17 19:48 97.9 18 05/07/17 19:45 64 Lab & Micro Results Test 05/07/17 16:50 05/07/17 17:38 Urine Color YELLOW Urine Turbidity CLOUDY Urine pH 8.0 Urine Specific [place] 1.016 Urine Protein NEG mg/dL Urine Glucose (UA) NEG mg/dL Urine Ketones NEG mg/dL Urine Occult Blood NEG Urine Nitrite NEG Urine Bilirubin NEG Urine Urobilinogen LESS THAN 2.0 MG/DL Urine Leukocyte Esterase TRACE Urine RBC 1 /hpf Urine WBC 1 /hpf Urine Squamous Epithelial Cells 2 /hpf Urine Amorphous Sediment RARE Urine Bacteria MOD /hpf Microscopic Urinalysis Comment CULTURE INDICATED Urine Opiates Screen NEG Urine Barbiturates Screen NEG Urine Amphetamines Screen NEG Urine Benzodiazepines Screen NEG Urine Cocaine Screen NEG Urine Cannabinoids Screen NEG White Blood Count 9.5 TH/MM3 Red Blood Count 3.31 MIL/MM3 Hemoglobin 9.8 GM/DL Hematocrit 26.8 % Mean Corpuscular Volume 81.0 FL Mean Corpuscular Hemoglobin 29.5 PG Mean Corpuscular Hemoglobin Concent 36.4 % Red Cell Distribution Width 14.9 % Platelet Count 331 TH/MM3 Mean Platelet Volume 7.2 FL Prothrombin Time 9.4 SEC Prothromb Time International Ratio 0.9 RATIO Blood Urea Nitrogen 12 MG/DL Creatinine 0.54 MG/DL Random Glucose 79 MG/DL Total Protein 6.8 GM/DL Albumin 2.4 GM/DL Calcium Level 9.2 MG/DL Uric Acid 3.2 MG/DL Alkaline Phosphatase 80 U/L Aspartate Amino Transf (AST/SGOT) 17 U/L Alanine Aminotransferase (ALT/SGPT) 13 U/L Total Bilirubin 0.1 MG/DL Sodium Level 139 MEQ/L Potassium Level 3.8 MEQ/L Chloride Level 102 MEQ/L Carbon Dioxide Level 28.6 MEQ/L Anion Gap 8 MEQ/L Estimat Glomerular Filtration Rate 136 ML/MIN Total Creatine Kinase 49 U/L Troponin I LESS THAN 0.02 NG/ML Hepatitis A IgM Antibody NEGATIVE Hepatitis B Surface Antigen NEGATIVE Hepatitis B Core IgM Antibody NEGATIVE Hepatitis C Antibody REACTIVE Date/Time Source Procedure Growth Status 05/07/17 16:50 Urine Clean Catch Urine Culture Pending Received Physical Exam GENERAL: Well-nourished, well-developed patient. CARDIOVASCULAR: Regular rate and rhythm without murmurs, gallops, or rubs. RESPIRATORY: Breath sounds equal bilaterally. No accessory muscle use. ABDOMEN/GI: Abdomen soft, non-tender. Gravid to 29 weeks EXTREMITIES: Nonpitting edema of bilateral lower extremities with tenderness, without signs of DVT. Assessment and Plan Assessment and Plan Patient is 26-year-old white female Ab1 29-30 weeks who [facility] a [facility] and presents complaining of severe leg swelling and pain. She is known IV drug user and is on Subutex now she is a project [employer] patient she has no obstetric problems this time baby looks good on the monitor and no contractions have she does have massive edema and both legs below the knee particularly but some [id number]. She says this developed in the last 3 weeks. Last 4 days she's had some chest pain and shortness of breath., Also positive history of hepatitis C Impression--29-40 week intrauterine history of IV drug use now with fluid overload massive edema in the legs patient is currently on Subutex and is a patient of [employer], month ago they can contact Dr. Méndez about her but for logistical reasons she could not get in to see her. Plan--admitted to observation CBC shows no leukocytosis, CMP shows no elevation of LFTs Echocardiogram is pending to rule out endocarditis, will consult cardiology if any concerning findings Will consult Dr. Méndez for any further recommendations May consult medicine for other complaints Nel Cordoba MD R1 May 08, 2017 10:16
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
[2017-05-08] MEDS ORDERED: FUROSEMIDE 40 MG/4 ML VIAL ONE (12:39)
[2017-05-08] MEDS: ENOXAPARIN SODIUM 40 MG/0.4 ML SYRINGE SQ SCH (12:50)
[2017-05-08] MEDS ORDERED: FUROSEMIDE 40 MG TAB PO ONE (13:00)
[2017-05-08] MEDS ORDERED: IRON SUCROSE 100 MG/5 ML VIAL IV PUSH ONE (13:00)
--- NOTE | 2017-05-08 14:39 | EKG ---
Date Performed: 05/07/2017 Time Performed: 17:31:15 PTAGE: 26 years EKG: Sinus rhythm NORMAL ECG PREVIOUS TRACING : 05/19/2013 10.48 Since the prior tracing, there has been no significant lopes DOCTOR: Jair Calhoun Interpretating Date/Time 05/08/2017 14:33:17
--- NOTE | 2017-05-08 15:30 | ECHRPT ---
Indication: CONCLUSIONS The transthoracic study is normal by two-dimensional, color flow imaging and Doppler interrogation. Normal left ventricular size. Wall thickness is normal. The left ventricular systolic function is hyperdynamic with an estimated ejection fraction in the ra nge of 65- 70%. The left atrial size is mildly dilated. The right atrial size is mildly dilated. No atrial level shunt is demonstrated by color flow Doppler interrogation. Trace mitral valve regurgitation. Aortic valve sclerosis is present. There is trace tricuspid valve regurgitation. Mild pulmonary valve regurgitation. BP: 111 / 49 HR: 66 Rhythm: Sinus MEASUREMENTS (Male / Female) Normal Values Technical Quality:Fair 2D ECHO LV Diastolic Diameter PLAX 5.6 cm 4.2 - 5.9 / 3.9 - 5.3 cm LV Systolic Diameter PLAX 3.8 cm IVS Diastolic Thickness 0.7 cm 0.6 - 1.0 / 0.6 - 0.9 cm LVPW Diastolic Thickness 0.7 cm 0.6 - 1.0 / 0.6 - 0.9 cm LV Relative Wall Thickness 0.3 RV Internal Dim ED PLAX 2.9 cm LVOT Diameter 1.9 cm Aortic Root Diameter 2.6 cm LA Systolic Diameter LX 3.3 cm 3.0 - 4.0 / 2.7 - 3.8 cm M-MODE AV Cusp Separation MM 2.1 cm DOPPLER AV Peak Velocity 163.0 cm/s AV Peak Gradient 10.6 mmHg AV Mean Gradient 5.0 mmHg AV Velocity Time Integral 29.9 cm LVOT Peak Velocity 92.5 cm/s LVOT Peak Gradient 3.4 mmHg LVOT Velocity Time Integral 18.2 cm AV Area Cont Eq vti 1.7 cm AV Area Cont Eq pk 1.6 cm Mitral E Point Velocity 101.0 cm/s Mitral A Point Velocity 65.2 cm/s Mitral E to A Ratio 1.5 LV E' Lateral Velocity 15.4 cm/s Mitral E to LV E' Lateral Ratio 6.6 LV E' Septal Velocity 12.7 cm/s Mitral E to LV E' Septal Ratio 8.0 PV Peak Velocity 93.2 cm/s PV Peak Gradient 3.5 mmHg FINDINGS LEFT VENTRICLE Normal left ventricular size. Wall thickness is normal. The left ventricular systolic function is hyperdynamic with an estimated ejection fraction in the ra nge of 65- 70%. RIGHT VENTRICLE Normal right ventricular size and systolic function. LEFT ATRIUM The left atrial size is mildly dilated. RIGHT ATRIUM The right atrial size is mildly dilated. ATRIAL SEPTUM No atrial level shunt is demonstrated by color flow Doppler interrogation. AORTA The aortic root and proximal ascending aorta are normal in size on limited imaging. MITRAL VALVE Trace mitral valve regurgitation. AORTIC VALVE Aortic valve sclerosis is present. TRICUSPID VALVE There is trace tricuspid valve regurgitation. PULMONARY VALVE Mild pulmonary valve regurgitation. VESSELS The inferior vena cava is normal in size. PERICARDIUM No pericardial effusion. Antwon Anderson MD, FACC, [facility] [place] (Electronically Signed) Final Date:08 May 2017 15:29
[2017-05-08] MEDS: ACETAMINOPHEN 325 MG TAB PO PRN (19:27)
[2017-05-08] MEDS: AMOXICILLIN/CLAVULANATE K 875 MG TAB PO SCH (21:26)
[2017-05-09] VITALS (7 sets, daily range): BP systolic 105–110; BP diastolic 57–59; PULSE 67–71; RESP 16–18; TEMP 97.9
--- NOTE | 2017-05-09 06:42 | PD.OB.ANTE ---
Subjective Interval History Had quiet night notes swelling has reduced since lasix, lovenox,aspirin on augmentin for tooth abcess Objective Vital Signs Vital Signs Date Time Temp Pulse Resp B/P (MAP) Pulse Ox O2 Delivery O2 Flow Rate FiO2 05/09/17 06:00 16 05/09/17 04:00 18 05/09/17 02:00 18 05/08/17 22:00 82 05/08/17 21:55 77 05/08/17 21:45 78 05/08/17 21:27 20 05/08/17 21:26 102/61 (75) 05/08/17 21:26 80 05/08/17 20:30 18 05/08/17 19:31 98.2 18 05/08/17 18:23 63 107/50 (69) 05/08/17 13:10 81 110/51 (70) 05/08/17 09:15 16 05/08/17 09:15 97.9 05/08/17 09:10 66 111/49 (69) Lab & Micro Results Date/Time Source Procedure Growth Status 05/07/17 16:50 Urine Clean Catch Urine Culture - Preliminary RESULTS PENDING Resulted Physical Exam GENERAL: Well-nourished, well-developed patient. CARDIOVASCULAR: Regular rate and rhythm without murmurs, gallops, or rubs. RESPIRATORY: Breath sounds equal bilaterally. No accessory muscle use. ABDOMEN/GI: Abdomen soft, non-tender. Fundus: [-] GENITOURINARY: EXTREMITIES: significant decrease in LE edema. Less painful strip reassuring. Assessment and Plan Assessment and Plan Patient is 26-year-old white female Ab1 29-30 weeks who gives a [facility] and presents complaining of severe leg swelling and pain. She is known IV drug user and is on Subutex now she is a [facility] patient she has no obstetric problems this time baby looks good on the monitor and no contractions have she does have massive edema and both legs below the knee particularly but some [id number]. She says this developed in the last 3 weeks. Last 4 days she's had some chest pain and shortness of breath., Also positive history of hepatitis C Impression--29-40 week intrauterine history of IV drug use now with fluid overload massive edema in the legs patient is currently on Subutex and is a patient of [facility], month ago they can contact Dr. Méndez about her but for logistical reasons she could not get in to see her. Plan--admitted to observation CBC shows no leukocytosis, CMP shows no elevation of LFTs Echocardiogram is pending to rule out endocarditis, will consult cardiology if any concerning findings Will consult Dr. Méndez for any further recommendations May consult medicine for other complaints 05/09/17 29 5/7 weeks MAT at [facility] severe swelling that has improved with emperic luvox, one dose lasix I think this is chronic inflammation of the lymphatics -- IVDA, pressure of in pelvis, etc. Would want her to go to [facility] with lovenox and baby aspirin. If they can't address will try without lovenox but if edema again worsens, will want to resume it. probable discharge to [facility] today. Jennifer Méndez MD May 09, 2017 06:42
[2017-05-09] MEDS ORDERED: POLYETHYLENE GLYCOL 17 GM PKG PO SCH (09:00)
[2017-05-09] MEDS: BUPRENORPHINE HCL 8 MG SUBLINGUAL TAB SL SCH (09:11)
[2017-05-09] MEDS: AMOXICILLIN/CLAVULANATE K 875 MG TAB PO SCH (09:11)
[2017-05-09] MEDS: NICOTINE 14 MG/24 HR PATCH T-DERMAL SCH (09:12)
[2017-05-09] MEDS: MULTIVIT/MIN/PREN/FOL AC/IRON PRENATAL TAB PO SCH (09:12)
[2017-05-09] MEDS: CITALOPRAM HYDROBROMIDE 20 MG TAB PO SCH (09:12)
[2017-05-09] MEDS: ASPIRIN 81 MG CHEW TAB CHEW SCH (09:12)
[2017-05-09] MEDS: ENOXAPARIN SODIUM 40 MG/0.4 ML SYRINGE SQ SCH (13:20)
== END 2017-05-09 16:20 | disposition home or self-care (01) ==
LOC: HOBED 16:17 → H2EA 17:20
PROVIDERS: ADMIT Obstetrics & Gynecology Maternal & Fetal Medicine; ATTEND Obstetrics & Gynecology Maternal & Fetal Medicine
DX: O12.03 Gestational edema, third trimester (principal); R07.9 Chest pain, unspecified; R06.02 Shortness of breath; O16.3 Unspecified maternal hypertension, third trimester; O98.413 Viral hepatitis complicating pregnancy, third trimester; B19.20 Unspecified viral hepatitis C without hepatic coma; O99.343 Other mental disorders complicating pregnancy, third trimester; F32.9 Major depressive disorder, single episode, unspecified; Z79.899 Other long term (current) drug therapy; E87.70 Fluid overload, unspecified; F41.9 Anxiety disorder, unspecified; O26.893 Other specified pregnancy related conditions, third trimester; F11.10 Opioid abuse, uncomplicated; M54.9 Dorsalgia, unspecified; M25.569 Pain in unspecified knee; O99.333 Smoking (tobacco) complicating pregnancy, third trimester; F17.200 Nicotine dependence, unspecified, uncomplicated
CPT/HCPCS: 59025; 76819; 80053; 80074; 80307; 81001; 82550; 84484; 84550; 85027; 85610; 87086; 93005; 93306; 93970; 96372; 96374; 99285; G0378; G0481; J1650; J1756; J1940

== ENCOUNTER 2017-05-14 10:19 | Emergency (ER) | payer OTHER ==
[2017-05-14 11:00] VITALS: TEMP 98
--- NOTE | 2017-05-14 11:33 | PD ---
HPI Chief Complaint Spotting Date Seen: May 14, 2017 Travel History International Travel<30 Days: No Contact w/Intl Traveler<30Days: No History of Present Illness HPI Ms. Riley is a 26 y/o at 30/3 weeks gestation present with LE edema and vaginal spotting. Patient was admitted last week for LE edema and chest pain with SOB. Troponin and EKG was negative at that time. US of LE was negative for DVT. Patient was started on lovenox for her LE edema. Since that time she has not been compliant with her bedrest and her lower extremity swelling has increased. Today she decided to come to the ED as she began to have mild paresthesia throughout both lower extremities as well as vaginal spotting. She describes a vaginal spotting as "alicia-sized bleeding on her underwear." She denies any vaginal trauma or intercourse over this timeframe. Currently she has no other complaints and denies any fevers, chills, shortness of breath, chest pain, NVD, or abdominal pain. Weeks Gestation: 30 Para: 0 : 2 History Past Medical History Narrative Medical Hepatitis C Depression on Celexa Obstetric History Obstetric History -Early loss without D&C Past Surgical History Narrative Surgical Patient reports no surgical history Family History Narrative Family History Patient does not report a significant FMHx Social History Narrative Social History Patient is currently on Subutex at [employer]. She is attempting to detox from Dilaudid she has been using for 8 years 3-4 times perday. Patient smokes approximately Patient denies any alcohol use. Allergies-Medications (Allergen,Severity, Reaction): Coded Allergies: No Known Allergies (Verified Adverse Reaction, Unknown, 04/21/17) Per pt. Home Meds Active Scripts Nitrofurantoin Monohydrate Macrocrystals (Macrobid) 100 Mg Capsule, 100 MG PO BID for Infection, #10 CAP 0 Refills Prov:Jose Currie MD, R3 04/18/17 Ferrous Sulfate (Ferrous Sulfate) 325 Mg (65 Mg Iron) Tablet, 325 MG PO BIDPC for Nutritional Supplement, #60 TAB 0 Refills Prov:Jose Currie MD, R3 04/18/17 Citalopram (Citalopram) 20 Mg Tab, 20 MG PO DAILY for Control Depression, #30 TAB 5 Refills Prov:Dimas Baer MD 03/18/17 Citalopram (Citalopram) 10 Mg Tab, 10 MG PO DAILY for Control Depression, #7 TAB 0 Refills Prov:Dimas Baer MD 03/18/17 Review of Systems Except as stated in HPI: all other systems reviewed are Neg (Per HPI ) Physical Exam Narrative GENERAL: Well-nourished, well-developed patient. SKIN: Warm and dry. HEAD: Normocephalic and atraumatic. EYES: No scleral icterus. No injection or drainage. ENT: No nasal drainage noted. Mucous membranes pink. Airway patent. NECK: Supple, trachea midline. No JVD. CARDIOVASCULAR: Regular rate and rhythm without murmurs, gallops, or rubs. RESPIRATORY: Breath sounds equal bilaterally. No accessory muscle use. ABDOMEN/GI: Abdomen soft, non-tender, bowel sounds present, no rebound, no guarding Gravid to 30 weeks size GENITOURINARY: Pelvic exam: Normally developed genitalia with no external lesions or eruptions. Cervical os cleaned with sterile swab showing normal vaginal discharge. Vagina and cervix show no lesions, inflammation, or discharge. Cervix closed. No cervical motion tenderness. No cervical friability. No cystocele. No foul smell. No bleeding appreciated on exam. FHT's: Category: 1 Baseline: 140s Reactive: Positive Variability: Moderate Decels: None EXTREMITIES: Bilateral lower extremities with 3+ swelling without pitting. No cyanosis. 2+ pulses appreciated in both lower extremities. Patient ambulating well without assistance. BACK: Nontender without obvious deformity. No CVA tenderness. NEUROLOGICAL: Awake and alert. Motor and sensory grossly within normal limits. Five out of 5 muscle strength in all muscle groups. Normal speech. Patient moving all 4 extremities spontaneously. Data Data Vital Signs Reviewed: Yes Orders Orders Vital Signs (Adult) .ON ADMISSION (05/14/17 11:21) ^ Labor Status (05/14/17 11:21) ^ Non Stress Test (05/14/17 11:21) [facility] Medical Record Reviewed: Yes Plan Ms. Riley is a 26 y/o presenting at 30/3 weeks of with pelvic pain and spotting. 1. IUP at 30 weeks gestation -Continue routine antepartum care -Encourage oral hydration and vitamin -Category 1 tracing, reassuring 2. Vaginal spotting -No acute bleeding appreciated on speculum exam with cervix closed -Patient to continue with Lovenox as there is no acute bleeding, patient is not tachycardic or hypotensive -Patient to follow-up with Dr. Méndez for further management 3. Round ligament pain -Patient educated on round ligament pain -Note given for heating pad to be used as needed at [facility] -Tylenol to be used as needed for pain control, patient to avoid NSAIDs 4. Bilateral Lower Extremity Edema -Patient currently on Lovenox therapy per Dr. Méndez -Patient to continue with daily Lovenox and follow-up with Dr. Méndez for further management Patient be discharged back to [facility] with close follow-up with Dr. Méndez. Patient's vaginal bleeding has resolved and currently is not in pain. SDW: Dr. Nguyen Diagnosis Diagnosis: Primary Impression: 30 weeks gestation of Additional Impression: Vaginal spotting Disposition: 01 DISCHARGE HOME Condition: Stable Patient Instructions: General Instructions, Abdominal Pain in (ED) Jamal Pettit MD R2 May 14, 2017 11:33
[2017-05-14 13:15] VITALS: PULSE 66
[2017-05-14 13:20] VITALS: PULSE 92
== END 2017-05-14 14:21 | disposition home or self-care (01) ==
LOC: HOBED 10:19
DX: O26.893 Other specified pregnancy related conditions, third trimester (principal); O98.413 Viral hepatitis complicating pregnancy, third trimester; B19.20 Unspecified viral hepatitis C without hepatic coma; O99.343 Other mental disorders complicating pregnancy, third trimester; F32.9 Major depressive disorder, single episode, unspecified; Z3A.30 30 weeks gestation of pregnancy
CPT/HCPCS: 99284

== ENCOUNTER → 2017-05-29 | Outpatient (CLI) | payer MEDICAID | LOC: HPND 10:26 | PROVIDERS: ATTEND Obstetrics & Gynecology | DX: O99.323 Drug use complicating pregnancy, third trimester (principal) | CPT/HCPCS: 76816; 76818 ==

== ENCOUNTER 2017-06-14 13:18 | Inpatient (IN) | payer MEDICAID ==
[~2017-06-14] VITALS: Ht 165.1 cm; Wt 99.3 kg
[2017-06-14] MEDS ORDERED: CITA40TA4 PO (14:33)
[2017-06-14] MEDS ORDERED: PREN29TA PO (14:34)
[2017-06-14] MEDS ORDERED: ENOX40P SQ (14:35)
[2017-06-14] MEDS ORDERED: FLAG375C PO (14:37)
[2017-06-14] MEDS ORDERED: MIRA3350 PO (14:38)
[2017-06-14] MEDS ORDERED: ASPI81CH6 CHEW (14:39)
[2017-06-14 16:20] LABS: BACTERIA, URINE RARE /hpf; BILIRUBIN, URINE SMALL (NEG); BLOOD, URINE NEG (NEG); GLUCOSE,URINE NEG (NEG); KETONE, URINE 150 mg/dL (NEG); MUCUS URINE FEW /lpf (OCC); NITRITE,URINE NEG (NEG); PH, URINE 5.5 (5.0-8.5); SQUAMOUS EPITHELIAL CELL URINE 4 /hpf (0-5); URINE COLOR YELLOW (YELLW/STRAW); URINE LEUKOCYTE ESTERASE SMALL (NEG)
[2017-06-14] MEDS: LACTATED RINGER'S 1000 ML INJ 1,000 ML IV SCH ×2 (16:40→23:00)
--- NOTE | 2017-06-14 17:50 | HHI.HP ---
HPI Chief Complaint nausea, vomiting, diarrhea at 35 weeks, severe abdominal pain massive lower extremity edema history of substance use on MAT low dose Date Seen: Jun 14, 2017 Time Seen: 17:41 Travel History International Travel<30 Days: No Contact w/Intl Traveler<30Days: No Known Affected Area: No History of Present Illness HPI 26 yo swf at 34 5/6 known to me and at [facility]. She had a severe panic attack yesterday and then woke up today with abdominal pain, nausea, vomiting and diarrhea. Denies fever. Denies eating anything different. No other residents at [facility] have flu, GI bug or other illness that she is aware of. Drug of choice -- dilaudid IV with last use in March. Has had severe swelling in lower extremities since early second trimester. Also has protein on dip stick and elevated protein to creatinine ratio. No leaking, bleeding. GFM. SOB but no chest pain. Has not eaten today since emesis in early am. Has been on lovenox 40 mg sc daily for what is presumed to be a IV drug induced lymphangitis. Currently 4 mg subutex BID, celexa 40 mg daily, PNV, Weeks Gestation: 35 Para: 0 History Past Medical History Narrative Medical elevated BMI. anemia hep C + Social History Alcohol Use: No Tobacco Use: Yes Substance Abuse: Yes Allergies-Medications (Allergen,Severity, Reaction): Coded Allergies: No Known Allergies (Verified Adverse Reaction, Unknown, 06/14/17) Per pt. Home Meds Active Scripts Ferrous Sulfate (Ferrous Sulfate) 325 Mg (65 Mg Iron) Tablet, 325 MG PO BIDPC for Nutritional Supplement, #60 TAB 0 Refills Prov:Jose Currie MD, R3 04/18/17 Reported Medications Aspirin (Aspirin Low Dose) 81 Mg Chew, 81 MG CHEW DAILY, TAB 0 Refills 06/14/17 Polyethylene Glycol 3350 Powder (Miralax Powder) 17 Gm Powd, 17 GM PO DAILY for Constipation, #1 CAN 0 Refills Mix and dissolve one measuring cap-ful (17 grams) in water or juice. 06/14/17 Metronidazole (Flagyl) 375 Mg Cap, 375 MG PO BID for Infection, CAP 0 Refills 06/14/17 Enoxaparin Inj (Lovenox Inj) 40 Mg/0.4 Ml Syr, 40 MG SQ DAILY for Blood Clot Prevention, SYRINGE 0 Refills 06/14/17 Vit-Iron Carbonyl ( Plus Iron 29-1 mg) 29 Mg Iron-1 Mg Tab, 1 TAB PO DAILY for Nutritional Supplement, #30 TAB 0 Refills 06/14/17 Citalopram (Citalopram) 40 Mg Tab, 40 MG PO DAILY for Control Depression, #30 TAB 0 Refills 06/14/17 Discontinued Scripts Nitrofurantoin Monohydrate Macrocrystals (Macrobid) 100 Mg Capsule, 100 MG PO BID for Infection, #10 CAP 0 Refills Prov:Jose Currie MD, R3 04/18/17 Citalopram (Citalopram) 20 Mg Tab, 20 MG PO DAILY for Control Depression, #30 TAB 5 Refills Prov:Dimas Baer MD 03/18/17 Citalopram (Citalopram) 10 Mg Tab, 10 MG PO DAILY for Control Depression, #7 TAB 0 Refills Prov:Dimas Baer MD 03/18/17 Review of Systems General / Constitutional: Weight Gain HENT: Lightheadedness Cardiovascular: Palpitations, Edema Respiratory: Short of Breath Gastrointestinal: Nausea, Vomiting, Diarrhea, Abdominal Pain, Loss of Appetite Genitourinary: Urgency, Frequency Neurologic: Headache Psychiatric: Anxiety, Substance Abuse Hematologic/Lymphatic: Lymph Node Enlargement Physical Exam Narrative GENERAL: Well-nourished, well-developed patient with massive edema SKIN: Warm and dry. HEAD: Normocephalic and atraumatic. EYES: No scleral icterus. No injection or drainage. ENT: No nasal drainage noted. Mucous membranes pink. Airway patent. NECK: Supple, trachea midline. No JVD. CARDIOVASCULAR: Regular rate and rhythm without murmurs, gallops, or rubs. RESPIRATORY: Breath sounds equal bilaterally. No accessory muscle use. BREASTS: Bilateral exam showed no masses , no retractions, no nipple discharge. ABDOMEN/GI: Abdomen soft, non-tender, bowel sounds present, no rebound, no guarding fundal height 36 vertex EFW 6 pounds pelvis clinically adequate 2/75/-2 posteriori EXTREMITIES: No cyanosis Massive painful, pitting edema BACK: Nontender without obvious deformity. No CVA tenderness. NEUROLOGICAL: Awake and alert. Motor and sensory grossly within normal limits. Five out of 5 muscle strength in all muscle groups. Normal speech. Caprini VTE Risk Assessment Caprini VTE Risk Assessment: Mod/High Risk (score >= 2) Caprini Risk Assessment Model Point Value = 1 Point Value = 2 Point Value = 3 Point Value = 5 Age 41-60 Minor surgery BMI > 25 kg/m2 Swollen legs Varicose veins or History of unexplained or recurrent spontaneous Oral contraceptives or hormone replacement Sepsis (< 1 month) Serious lung disease, including pneumonia (< 1 month) Abnormal pulmonary function Acute myocardial infarction Congestive heart failure (< 1 month) History of inflammatory bowel disease Medical patient at bed rest Age 61-74 Arthroscopic surgery Major open surgery (> 45 min) Laparoscopic surgery (> 45 min) Malignancy Confined to bed (> 72 hours) Immobilizing plaster cast Central venous access Age >= 75 History of VTE Family history of VTE Factor V Leiden Prothrombin [id number] Lupus anticoagulant Anticardiolipin antibodies Elevated serum homocysteine Heparin-induced thrombocytopenia Other congenital or acquired thrombophilia Stroke (< 1 month) Elective arthroplasty Hip, pelvis, or leg fracture Acute spinal cord injury (< 1 month) Prophylaxis Regimen Total Risk Factor Score Risk Level Prophylaxis Regimen 0-1 Low Early ambulation 2 Moderate Order ONE of the following: *Sequential Compression Device (SCD) *Heparin 5000 units SQ BID 3-4 Higher Order ONE of the following medications: *Heparin 5000 units SQ TID *Enoxaparin/Lovenox 40 mg SQ daily (WT < 150 kg, CrCl > 30 mL/min) *Enoxaparin/Lovenox 30 mg SQ daily (WT < 150 kg, CrCl > 10-29 mL/min) *Enoxaparin/Lovenox 30 mg SQ BID (WT < 150 kg, CrCl > 30 mL/min) AND/OR *Sequential Compression Device (SCD) 5 or more Highest Order ONE of the following medications: *Heparin 5000 units SQ TID (Preferred with Epidurals) *Enoxaparin/Lovenox 40 mg SQ daily (WT < 150 kg, CrCl > 30 mL/min) *Enoxaparin/Lovenox 30 mg SQ daily (WT < 150 kg, CrCl > 10-29 mL/min) *Enoxaparin/Lovenox 30 mg SQ BID (WT < 150 kg, CrCl > 30 mL/min) AND *Sequential Compression Device (SCD) Data Data Orders Orders Lactated Ringer's 1000 Ml Inj (Lr 1000 M (06/14/17 15:00) Ob (2e) Additional Admit Info (06/14/17 14:17) Weigh Patient (06/14/17 14:30) Comprehensive Metabolic Panel (06/14/17 14:30) Direct Bilirubin (06/14/17 14:30) Type And Screen (06/14/17 14:30) Complete Blood Count With Diff (06/14/17 14:30) Urinalysis - C+S If Indicated (06/14/17 14:30) Specimen To Be Collected PRN (06/14/17 14:30) Protein Creat Ratio, Random Ur (06/14/17 14:30) Ob/Psych Drug Screen, Urine (06/14/17 14:30) Labs Laboratory Tests Test 06/14/17 15:20 Urine Color YELLOW Urine Turbidity HAZY Urine pH 5.5 Urine Specific [place] 1.030 Urine Protein 30 Urine Glucose (UA) NEG Urine Ketones 150 Urine Occult Blood NEG Urine Nitrite NEG Urine Bilirubin SMALL Urine Urobilinogen LESS THAN 2.0 Urine Leukocyte Esterase SMALL Urine RBC 1 Urine WBC 4 Urine Squamous Epithelial Cells 4 Urine Bacteria RARE Urine Mucus FEW Microscopic Urinalysis Comment CULT NOT INDICATED Urine Random Creatinine 238 Urine Random Total Protein 56 Urine Protein/Creatinine Ratio 0.24 Urine Opiates Screen NEG Urine Barbiturates Screen NEG Urine Amphetamines Screen NEG Urine Benzodiazepines Screen NEG Urine Cocaine Screen NEG Urine Cannabinoids Screen NEG Assessment/Plan Problem List: (1) Third trimester ICD Codes: Z34.93 - Encounter for supervision of normal , unspecified , third trimester (2) Gastric pain ICD Codes: R10.9 - Unspecified abdominal pain (3) Substance addiction ICD Codes: F19.20 - Other psychoactive substance dependence, uncomplicated Status: Acute (4) Anemia ICD Codes: D64.9 - Anemia Status: Acute (5) Obesity ICD Codes: E66.9 - Obesity Status: Acute Assessment and Plan 23 hour observation for o24 hour protein, LFTS, platelets and BPP hold lovenox for anticipated dental appointment Friday sequentials diet as tolerated subutex and celexa ambien and vistaril. Jennifer Méndez MD Jun 14, 2017 17:50
[2017-06-14] MEDS ORDERED: ZOLPIDEM TARTRATE 10 MG TAB PO ONE (18:00)
[2017-06-14] MEDS ORDERED: PILL SPLITTER OTHER PRN (18:30)
[2017-06-14 18:52] LABS: AUTOMATED NEUTROPHIL # 9.5 TH/MM3 (1.8-7.7); BASOPHIL % 0.1 % (0.0-2.0); LYMPH % 4.2 % (9.0-44.0); LYMPHOCYTE # 0.4 TH/MM3 (1.0-4.8); MEAN CELL VOLUME 82.9 FL (80.0-100.0); MEAN CORPUSCULAR HEMOGLOBIN 29.1 PG (27.0-34.0); MEAN CORPUSCULAR HGB CONC 35.2 % (32.0-36.0); MEAN PLATELET VOLUME 8.4 FL (7.0-11.0); MONO % 2.9 % (0.0-8.0); MONOCYTE # 0.3 TH/MM3 (0-0.9); NEUT % 92.8 % (16.0-70.0); PLATELET COUNT 241 TH/MM3 (150-450); RED CELL DISTRIBUTION WIDTH 15.5 % (11.6-17.2); WHITE BLOOD COUNT 10.3 TH/MM3 (4.0-11.0)
[2017-06-14 19:15] LABS: ALBUMIN 2.7 GM/DL (3.4-5.0); AST (GOT) 20 U/L (15-37); BICARBONATE 22.4 MEQ/L (21.0-32.0); BLOOD UREA NITROGEN 15 MG/DL (7-18); CALCIUM 8.6 MG/DL (8.5-10.1); CHLORIDE 106 MEQ/L (98-107); CREATININE 0.71 MG/DL (0.50-1.00); DIRECT BILIRUBIN ADULT 0.1 MG/DL (0.0-0.2); GLOMERULAR FILTRATION RATE 100 ML/MIN (>89); GLUCOSE,RANDOM 86 MG/DL (74-106); SODIUM (NA) 140 MEQ/L (136-145)
[2017-06-14 19:16] LABS: ALT (GPT) 16 U/L (10-53)
[2017-06-14 19:26] LABS: ALKALINE PHOSPHATASE 112 U/L (45-117); TOTAL BILIRUBIN ADULT 0.4 MG/DL (0.2-1.0); TOTAL PROTEIN 6.6 GM/DL (6.4-8.2)
[2017-06-14] MEDS ORDERED: ZOLPIDEM TARTRATE 10 MG TAB PO PRN (20:15)
[2017-06-14] MEDS ORDERED: LORazepam 2 MG/ML VIAL IV ONE (20:15)
[2017-06-14] MEDS ORDERED: hydrOXYzine HCL 50 MG/ML VIAL IM ONE (20:15)
[2017-06-14] MEDS: SUCRALFATE 1 GM/10 ML CUP PO SCH (21:17)
[2017-06-14] MEDS: PANTOPRAZOLE SOD 40 MG DELAYED RELEASE TAB PO SCH (21:17)
[2017-06-14] MEDS: BUPRENORPHINE HCL 8 MG SUBLINGUAL TAB SL SCH (21:18)
[2017-06-14] MEDS ORDERED: ACETAMINOPHEN 325 MG TAB PO PRN (23:45)
[2017-06-15] VITALS (7 sets, daily range): BP systolic 115–130; BP diastolic 61–70; PULSE 53–74; RESP 16; TEMP 97.9; O2SAT 97–100
[2017-06-15] MEDS ORDERED: AMPICILLIN/SULBAC 3 GM/NS 100 ML IV ONE ×2
--- NOTE | 2017-06-15 07:12 | PD.OB.ANTE ---
Subjective Diagnosis: (1) Third trimester (2) Gastric pain (3) Substance addiction (4) Anemia (5) Obesity Interval History feels and looks much puffier today baby less tachycardic than yesterday Uric acid is elevated. 24 hour urine pending Objective Lab & Micro Results Test 06/14/17 15:20 06/14/17 18:03 Urine Color YELLOW Urine Turbidity HAZY Urine pH 5.5 Urine Specific [place] 1.030 Urine Protein 30 mg/dL Urine Glucose (UA) NEG mg/dL Urine Ketones 150 mg/dL Urine Occult Blood NEG Urine Nitrite NEG Urine Bilirubin SMALL Urine Urobilinogen LESS THAN 2.0 MG/DL Urine Leukocyte Esterase SMALL Urine RBC 1 /hpf Urine WBC 4 /hpf Urine Squamous Epithelial Cells 4 /hpf Urine Bacteria RARE /hpf Urine Mucus FEW /lpf Microscopic Urinalysis Comment CULT NOT INDICATED Urine Random Creatinine 238 MG/DL Urine Random Total Protein 56 MG/DL Urine Protein/Creatinine Ratio 0.24 Urine Opiates Screen NEG Urine Barbiturates Screen NEG Urine Amphetamines Screen NEG Urine Benzodiazepines Screen NEG Urine Cocaine Screen NEG Urine Cannabinoids Screen NEG White Blood Count 10.3 TH/MM3 Red Blood Count 4.10 MIL/MM3 Hemoglobin 12.0 GM/DL Hematocrit 34.0 % Mean Corpuscular Volume 82.9 FL Mean Corpuscular Hemoglobin 29.1 PG Mean Corpuscular Hemoglobin Concent 35.2 % Red Cell Distribution Width 15.5 % Platelet Count 241 TH/MM3 Mean Platelet Volume 8.4 FL Neutrophils (%) (Auto) 92.8 % Lymphocytes (%) (Auto) 4.2 % Monocytes (%) (Auto) 2.9 % Eosinophils (%) (Auto) 0.0 % Basophils (%) (Auto) 0.1 % Neutrophils # (Auto) 9.5 TH/MM3 Lymphocytes # (Auto) 0.4 TH/MM3 Monocytes # (Auto) 0.3 TH/MM3 Eosinophils # (Auto) 0.0 TH/MM3 Basophils # (Auto) 0.0 TH/MM3 CBC Comment DIFF FINAL Differential Comment Blood Urea Nitrogen 15 MG/DL Creatinine 0.71 MG/DL Random Glucose 86 MG/DL Total Protein 6.6 GM/DL Albumin 2.7 GM/DL Calcium Level 8.6 MG/DL Uric Acid 5.3 MG/DL Alkaline Phosphatase 112 U/L Aspartate Amino Transf (AST/SGOT) 20 U/L Alanine Aminotransferase (ALT/SGPT) 16 U/L Total Bilirubin 0.4 MG/DL Direct Bilirubin 0.1 MG/DL Sodium Level 140 MEQ/L Potassium Level 3.9 MEQ/L Chloride Level 106 MEQ/L Carbon Dioxide Level 22.4 MEQ/L Anion Gap 12 MEQ/L Estimat Glomerular Filtration Rate 100 ML/MIN Physical Exam GENERAL: Well-nourished, well-developed patient edematous patient CARDIOVASCULAR: Regular rate and rhythm without murmurs, gallops, or rubs. RESPIRATORY: Breath sounds equal bilaterally. No accessory muscle use. ABDOMEN/GI: Abdomen soft, non-tender. strip reactive EXTREMITIES: No cyanosis very edematous and tender to touch. No erythema, heat, cords and Nena's negative. Assessment and Plan Problem List: (1) Third trimester ICD Codes: Z34.93 - Encounter for supervision of normal , unspecified , third trimester (2) Gastric pain ICD Codes: R10.9 - Unspecified abdominal pain (3) Substance addiction ICD Codes: F19.20 - Other psychoactive substance dependence, uncomplicated Status: Acute (4) Anemia ICD Codes: D64.9 - Anemia Status: Acute (5) Obesity ICD Codes: E66.9 - Obesity Status: Acute Assessment and Plan 23 hour observation for o24 hour protein, LFTS, platelets and BPP hold lovenox for anticipated dental appointment Friday sequentials diet as tolerated subutex and celexa ambien and vistaril. 06/15/17 extend observation to obtain 24 hour urine and BPP weigh patient continue medications. betamethasone. Jennifer Méndez MD Jun 15, 2017 07:12
[2017-06-15] MEDS: SUCRALFATE 1 GM/10 ML CUP PO SCH ×4 (07:57→21:00)
[2017-06-15] MEDS: AMPICILLIN/SULBAC 1500 MG/NS 100 ML IV SCH ×4 (07:59→16:08)
[2017-06-15] MEDS ORDERED: BETAMETHASONE SOD PHOS/ACETATE SUSP 30 MG/5 ML VIAL IM ONE (08:00)
[2017-06-15] MEDS: PANTOPRAZOLE SOD 40 MG DELAYED RELEASE TAB PO SCH ×2 (08:54→21:27)
[2017-06-15] MEDS: BUPRENORPHINE HCL 8 MG SUBLINGUAL TAB SL SCH ×3 (08:54→21:28)
[2017-06-15] MEDS ORDERED: CITALOPRAM HYDROBROMIDE 40 MG TAB PO SCH (09:00)
[2017-06-15] MEDS ORDERED: SUCCINYLCHOLINE CHLORIDE 100 MG/5 ML SYRINGE IV PUSH ONE (12:00)
[2017-06-15] MEDS ORDERED: ONDANSETRON HCL 4 MG/2 ML VIAL IV ONE (12:00)
[2017-06-15] MEDS ORDERED: PROPOFOL 200 MG/20 ML AMP IV ONE (12:00)
[2017-06-15] MEDS ORDERED: OXYTOCIN 10 UNIT/ML AMP IV ONE (12:00)
[2017-06-15] MEDS ORDERED: DEXAMETHASONE SOD PHOS 4 MG/ML VIAL IV ONE (12:00)
[2017-06-15] MEDS ORDERED: LIDOCAINE HCL 1% PF 5 ML SYRINGE OTHER ONE (12:00)
[2017-06-15] MEDS ORDERED: ceFAZolin INJ 1,000 MG VIAL ONE (16:25)
[2017-06-15] MEDS ORDERED: fentaNYL CITRATE 250 MCG/5 ML AMP ONE (16:43)
[2017-06-15] MEDS ORDERED: BUPIVACAINE HCL PF 0.25% 30 ML VIAL ONE (16:54)
[2017-06-15] MEDS ORDERED: DEXAMETHASONE SOD PHOS 4 MG/ML VIAL ONE (16:54)
--- NOTE | 2017-06-15 17:10 | PD.OB.ANTE ---
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 by nursing. pt. is pt. of dr. linares who originally presented w/ abdominal pain at 34 weeks. when i arrived, pt., with noted bradycardia in the low 100's to 90's for ~ 15min. variability was moderate, but featal movement noted by mother and on vaginal examination. cervical exam: 1/long/post/high. Objective Lab & Micro Results Test 06/14/17 18:03 White Blood Count 10.3 TH/MM3 Red Blood Count 4.10 MIL/MM3 Hemoglobin 12.0 GM/DL Hematocrit 34.0 % Mean Corpuscular Volume 82.9 FL Mean Corpuscular Hemoglobin 29.1 PG Mean Corpuscular Hemoglobin Concent 35.2 % Red Cell Distribution Width 15.5 % Platelet Count 241 TH/MM3 Mean Platelet Volume 8.4 FL Neutrophils (%) (Auto) 92.8 % Lymphocytes (%) (Auto) 4.2 % Monocytes (%) (Auto) 2.9 % Eosinophils (%) (Auto) 0.0 % Basophils (%) (Auto) 0.1 % Neutrophils # (Auto) 9.5 TH/MM3 Lymphocytes # (Auto) 0.4 TH/MM3 Monocytes # (Auto) 0.3 TH/MM3 Eosinophils # (Auto) 0.0 TH/MM3 Basophils # (Auto) 0.0 TH/MM3 CBC Comment DIFF FINAL Differential Comment Blood Urea Nitrogen 15 MG/DL Creatinine 0.71 MG/DL Random Glucose 86 MG/DL Total Protein 6.6 GM/DL Albumin 2.7 GM/DL Calcium Level 8.6 MG/DL Uric Acid 5.3 MG/DL Alkaline Phosphatase 112 U/L Aspartate Amino Transf (AST/SGOT) 20 U/L Alanine Aminotransferase (ALT/SGPT) 16 U/L Total Bilirubin 0.4 MG/DL Direct Bilirubin 0.1 MG/DL Sodium Level 140 MEQ/L Potassium Level 3.9 MEQ/L Chloride Level 106 MEQ/L Carbon Dioxide Level 22.4 MEQ/L Anion Gap 12 MEQ/L Estimat Glomerular Filtration Rate 100 ML/MIN Physical Exam GENERAL: Well-nourished, well-developed patient. CARDIOVASCULAR: Regular rate and rhythm without murmurs, gallops, or rubs. RESPIRATORY: Breath sounds equal bilaterally. No accessory muscle use. ABDOMEN/GI: Abdomen soft, non-tender. Fundus: [-] GENITOURINARY: External Genitalia: intact and normal in appearance Cervix:post Dilatation: 1 Effacement: long Station: high Presentation: cephalic Membranes: intact Uterine Contractions: none FHT's: Category: 3 Baseline:90-100's Variability: mod Decels: none EXTREMITIES: 3+ edema Assessment and Plan Problem List: (1) Third trimester ICD Codes: Z34.93 - Encounter for supervision of normal , unspecified , third trimester (2) Gastric pain ICD Codes: R10.9 - Unspecified abdominal pain (3) Substance addiction ICD Codes: F19.20 - Other psychoactive substance dependence, uncomplicated Status: Acute (4) Anemia ICD Codes: D64.9 - Anemia Status: Acute (5) Obesity ICD Codes: E66.9 - Obesity Status: Acute (6) bradycardia, delivered ICD Codes: O76 - Abnormality in heart rate and rhythm complicating labor and delivery Plan: pt. w/ bradycardia. condition d/w mother. cd d/w pt. risks/ benefits and alternatives d/w w/ pt. w/ nurses present all ? answered. pt. show understanding and give verbal consent for stat cd. Assessment and Plan 23 hour observation for o24 hour protein, LFTS, platelets and [facility] Friday sequentials diet as tolerated subutex and celexa ambien and vistaril. 06/15/17 extend observation to obtain 24 hour urine and BPP weigh patient continue medications. betamethasone. Antwon Rodarte Jr., MD Jun 15, 2017 17:10
--- NOTE | 2017-06-15 17:37 | PD.OB.DELI ---
Procedure Note Section Procedure Pre Op Diagnosis: (1) bradycardia, delivered (2) Gastric pain (3) Third trimester (4) Obesity (5) Bipolar 1 disorder (6) Substance addiction (7) Hepatitis C Post Op Diagnosis: (1) Delivered by section Performed by Antwon Rodarte and Jennifer Méndez second assist [email or web address] Procedure: Primary Low Transverse Sec Indication for delivery: Nonreassuring heart tracing Previous condition: Other (maternal pelvic lymphedema and substance use) Informed consent obtained: For anesthesia, For procedure Confirmed correct: Patient, Procedure, Site Anesthesia: Other (general) Medication prior to procedure: As documented in eMAR Monitoring during procedure: Blood pressure monitoring, teletypesetter monitor, doppler, Pulse oximetry Urinary catheter: Inserted using sterile technique, To dependent drainage, ml urine output Sterile preparation: Duraprep, In usual fashion Position: Supine with wedge to right side Operative Features Skin Incision: Pfannenstiel Uterine Incision: Low transverse w/knife / blunt ext Membranes Ruptured: Artificially Presentation: Occiput anterior Delivery date: Jun 15, 2017 Delivery time: 17:30 Delivery of : Assisted Infant: Female One Minute : 8 Five Minute : 8 Weight: 6 Status of infant: Viable, Cord blood, Umbilical cord, Nursery present Placenta delivered: Intact, Abnormalities, Sent to pathology Medications: Antibiotics Estimated blood loss: 800 Procedure tolerated: Well Maternal Complications: Uterine atony Maternal Condition: Stable Condition: Stable (dictated) Procedure in detail Did receive post operative TAP for pain management Jennifer Méndez MD Jun 15, 2017 17:37
[2017-06-15] MEDS ORDERED: ZOLPIDEM TARTRATE 5 MG TAB PO PRN (17:45)
[2017-06-15] MEDS ORDERED: OXYTOCIN 30 UNITS-500ML PREMIX 500 ML IV ONE (17:45)
[2017-06-15] MEDS ORDERED: oxyCODONE/ACETAMINOPHEN 5 MG/325 MG TAB PO PRN (17:45)
[2017-06-15] MEDS ORDERED: ONDANSETRON HCL 4 MG/2 ML VIAL IV PUSH PRN (17:45)
[2017-06-15] MEDS ORDERED: SIMETHICONE 80 MG CHEWABLE TAB PO PRN (17:45)
[2017-06-15] MEDS ORDERED: SODIUM CHLORIDE 0.9% FLUSH 10 ML FLUSH IV FLUSH PRN (17:45)
[2017-06-15] MEDS ORDERED: DOCUSATE SODIUM 50 MG/SENNA 8.6 MG TAB PO PRN (17:45)
[2017-06-15] MEDS ORDERED: ACETAMINOPHEN 1000 MG/100 ML 100 ML IV ONE ×2 (17:45→18:22)
--- NOTE | 2017-06-15 17:52 | MP ---
cc: Jennifer Méndez MD DATE OF OPERATION: 06/15/2017 PREOPERATIVE DIAGNOSIS: Sudden bradycardia that did not respond to maternal resuscitation while on the antepartum suite. 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 POSTOPERATIVE DIAGNOSIS: Sudden bradycardia that did not respond to maternal resuscitation while on the antepartum suite, delivered. Notable for a very short nuchal tight cord. ANESTHESIA: General. SURGEON: Jennifer Méndez MD. Initial surgeon was Antwon Rodarte Jr, MD, laborist, who diagnosed indication to go back emergently and then, I came in after the baby was out to assist with closure. SECOND ASSIST: Glenis Larson, third year medical student. FINDINGS: Infant weighed 5 pounds 10 ounces, was Apgars of 8 at one and 8 at five with no resuscitation needed. Cord gas and cord blood were obtained. Placenta appeared unusual in that it was calcified with pale tiny lesions that I have not seen before and was sent to pathology. Again, the cord was abnormally short. There was mild uterine atony and there was significant bleeding from the rectus muscle that was rendered hemostatic with suture and Surgicel powder. Sponge, instrument and needle count were correct. ESTIMATED BLOOD LOSS: 800 mL DESCRIPTION OF PROCEDURE: The patient was taken to the OR by Dr. Antwon Rodarte emergently due to persistent bradycardia that did not respond to maternal resuscitation. She was quickly placed on the table, given general endotracheal anesthesia. She was prepped and draped. A Abad had been placed and then a Pfannenstiel incision was made by Dr. Rodarte, carried down through the rectus fascia. The rectus fascia was incised, the rectus muscle , and the lower uterine segment incised in a low transverse fashion. I arrived as the baby was being taken to the [facility] with a lusty cry. Dr. Rodarte completed the suturing of the uterus with a running interlocking Vicryl and then a horizontal imbricating suture. The uterus was massaged and placed in the abdominal cavity. Copious irrigation was performed to remove a fair amount of clot. Then, the rectus muscle was approximated, additional sutures thrown for bleeding, and Surgicel was placed. Then, rectus fascia was closed with 0 Vicryl. The subcutaneous layer was closed with 3-0 plain. Skin was closed with 4-0 Vicryl on a Joe needle. Steri-Strips and Primapore were placed and then she was cleaned off in anticipation of having a TAP to help reduce pain. MD MADI Rosa/SB , 05:36 PM , 05:52 PM [email or web address]
--- NOTE | 2017-06-15 17:58 | RADRPT ---
EXAM DATE/TIME: 06/15/2017 17:27 [facility] COMPARISON: No previous studies available for comparison. INDICATIONS : Patient underwent a STAT section without an instrument count, please evaluate for any and al l possible foreign bodies. MEDICAL HISTORY : Hepatitis C. SURGICAL HISTORY : section. ENCOUNTER: Initial ACUITY: 1 day PAIN SCORE: Non-responsive. LOCATION: Entire lower abdomen FINDINGS: Examination of the abdomen demonstrates a normal bowel gas pattern. No free air is identified. No o rganomegaly is evident. Osseous structures are intact. There is increased density in the pelvis. The patient is status post section and increased density is consistent with a uterus . There is a catheter over the lower pelvis likely related to Abad catheter. No metallic instruments a re seen. There are small metallic densities projecting over the lower medial right pelvis adjacent to the medial aspect of the obturator foramen. These could also be punctate areas of artifact. This is not thought to be significant. CONCLUSION: No significant foreign bodies are seen. There are punctate areas of increased density at the lower me dial right pelvis likely related to either artifact or tiny metallic densities. They are not related to an instrument. There is a catheter over the lower pelvis likely related to a Abad. Jasiel Clark MD on June 15, 2017 at 17:50 Board Certified Radiologist. This report was verified electronically.
[2017-06-15] MEDS ORDERED: OXYTOCIN 30 UNITS-500ML PREMIX 500 ML ONE (18:13)
[2017-06-15] MEDS ORDERED: MORPHINE SULFATE 30 MG/30 ML PCA IV SCH (18:15)
[2017-06-15] MEDS ORDERED: diphenhydrAMINE HCL 50 MG/ML VIAL IV PUSH PRN (18:15)
[2017-06-15] MEDS ORDERED: NALOXONE HCL 0.4 MG/ML AMP IV PUSH PRN (18:15)
[2017-06-15] MEDS ORDERED: KETOROLAC TROMETHAMINE 60 MG/2 ML (IM) VIAL IM ONE (18:43)
[2017-06-15] MEDS ORDERED: MORPHINE SULFATE 30 MG/30 ML PCA ONE (19:33)
[2017-06-15] MEDS: SODIUM CHLORIDE 0.9% FLUSH 10 ML FLUSH IV FLUSH SCH (21:00)
[2017-06-15] MEDS: PCA - TOTAL MG MORPHINE DELIVERED PER SHIFT SCH (21:30)
[2017-06-15] MEDS: LACTATED RINGER'S 1000 ML INJ 1,000 ML IV SCH (21:46)
[2017-06-15] MEDS ORDERED: LACTATED RINGER'S 1000 ML INJ 1,000 ML IV SCH (22:37)
[2017-06-16 00:30] VITALS: BP 112/64; PULSE 67; RESP 16; TEMP 98
[2017-06-16] MEDS: metroNIDAZOLE 500 MG TAB PO SCH ×2 (01:27→11:45)
[2017-06-16] MEDS ORDERED: OXYTOCIN 30 UNITS-500ML PREMIX 500 ML IV PRN (03:45)
[2017-06-16 04:30] VITALS: BP 100/54; PULSE 63; RESP 16; TEMP 98.1
[2017-06-16] MEDS: PCA - TOTAL MG MORPHINE DELIVERED PER SHIFT SCH ×2 (05:33→12:00)
[2017-06-16] MEDS: LACTATED RINGER'S 1000 ML INJ 1,000 ML IV SCH (05:34)
[2017-06-16 07:11] LABS: AUTOMATED NEUTROPHIL # 11.5 TH/MM3 (1.8-7.7); HEMATOCRIT 24.8 % (35.0-46.0); HEMOGLOBIN 8.6 GM/DL (11.6-15.3); LYMPH % 9.2 % (9.0-44.0); LYMPHOCYTE # 1.2 TH/MM3 (1.0-4.8); MEAN CELL VOLUME 81.7 FL (80.0-100.0); MEAN CORPUSCULAR HEMOGLOBIN 28.1 PG (27.0-34.0); MEAN CORPUSCULAR HGB CONC 34.4 % (32.0-36.0); MEAN PLATELET VOLUME 8.5 FL (7.0-11.0); MONO % 3.5 % (0.0-8.0); MONOCYTE # 0.5 TH/MM3 (0-0.9); NEUT % 87.3 % (16.0-70.0); PLATELET COUNT 203 TH/MM3 (150-450); RED BLOOD COUNT 3.04 MIL/MM3 (4.00-5.30); RED CELL DISTRIBUTION WIDTH 15.6 % (11.6-17.2); WHITE BLOOD COUNT 13.1 TH/MM3 (4.0-11.0)
[2017-06-16 07:12] LABS: ALBUMIN 1.9 GM/DL (3.4-5.0); ALKALINE PHOSPHATASE 78 U/L (45-117); ALT (GPT) 12 U/L (10-53); AST (GOT) 19 U/L (15-37); DIRECT BILIRUBIN ADULT LESS THAN 0.1 MG/DL (0.0-0.2); TOTAL BILIRUBIN ADULT LESS THAN 0.1 MG/DL (0.2-1.0)
[2017-06-16] MEDS: SUCRALFATE 1 GM/10 ML CUP PO SCH ×4 (08:12→20:46)
[2017-06-16 08:15] VITALS: BP 100/57; PULSE 76; RESP 16; TEMP 98
--- NOTE | 2017-06-16 08:38 | HHI.OB ---
Subjective Post Operative Day: 1 Remarks resting since section Cdiff was positive and we only learned after the section now on flagyl baby doing very well now on 8 mg BID buprenorphine Objective Vitals/I&O Vital Signs Date Time Temp Pulse Resp B/P (MAP) Pulse Ox O2 Delivery O2 Flow Rate FiO2 06/16/17 08:15 98.0 76 16 100/57 (71) 06/16/17 05:33 18 06/16/17 04:30 98.1 63 16 100/54 (69) 06/16/17 00:30 98.0 67 16 112/64 (80) 06/15/17 21:30 18 06/15/17 20:30 97.9 60 16 115/68 (84) 98 06/15/17 20:00 100 06/15/17 20:00 58 16 116/66 (83) 06/15/17 19:45 74 16 129/70 (89) 06/15/17 19:45 100 06/15/17 19:30 16 06/15/17 19:28 53 98 06/15/17 19:15 126/61 (82) 06/15/17 19:14 97.9 55 130/66 (87) 97 Result Diagram: 06/16/17 0604 06/14/17 1803 Objective Remarks GENERAL: Well-nourished, well-developed patient. CARDIOVASCULAR: Regular rate and rhythm without murmurs, gallops, or rubs. RESPIRATORY: Breath sounds equal bilaterally. No accessory muscle use. ABDOMEN/GI: Abdomen soft, non-tender, bowel sounds present. Incision: Clean, with some serous drainage--watch Fundus: Firm, tender at umbilicus. GENITOURINARY: Light to moderate bleeding. EXTREMITIES: No cyanosis edema still pronounced Medications and IVs Current Medications Medications (Trade) Dose Ordered Sig/Manuel Route Start Time Stop Time Status Last Admin Lactated Ringer's 1,000 ml @ 125 mls/hr Q8H IV 06/14/17 15:00 06/16/17 05:34 (Carafate Liq) 1 gm ACHS PO 06/14/17 21:00 06/16/17 08:12 (Pill Splitter) 1 ea UNSCH PRN OTHER 06/14/17 18:30 (Tylenol) 650 mg Q4H PRN PO 06/14/17 23:45 06/14/17 23:44 Lactated Ringer's 1,000 ml @ 100 mls/hr Q10H IV 06/15/17 22:37 06/16/17 18:36 06/15/17 21:31 Oxytocin 500 ml @ 100 mls/hr UNSCH X1 PRN IV 06/16/17 03:45 06/17/17 03:44 (NS Flush) 2 ml BID IV FLUSH 06/15/17 21:00 (NS Flush) 2 ml UNSCH PRN IV FLUSH 06/15/17 17:45 (Mylicon Chew) 80 mg QID PRN PO 06/15/17 17:45 (Motrin) 600 mg Q6H PRN PO 06/15/17 17:45 (Percocet 5-325 Mg) 1 tab Q4H PRN PO 06/15/17 17:45 (Percocet 5-325 Mg) 2 tab Q4H PRN PO 06/15/17 17:45 (January-Colace) 2 tab Q12H PRN PO 06/15/17 17:45 (Ambien) 5 mg HS PRN PO 06/15/17 17:45 (M-M-R Ii Inj) 0.5 ml ONCE ONCE SQ 06/16/17 16:00 06/16/17 16:01 (Boostrix Inj) 0.5 ml ONCE ONCE IM 06/16/17 16:00 06/16/17 16:01 (Zofran Inj) 4 mg Q6H PRN IV PUSH 06/15/17 17:45 (Buprenorphine) 8 mg BID SL 06/15/17 21:00 06/15/17 21:28 (Protonix) 40 mg DAILY PO 06/16/17 09:00 (CeleXA) 40 mg DAILY PO 06/16/17 09:00 (Narcan Inj) 0.4 mg UNSCH PRN IV PUSH 06/15/17 18:15 (Benadryl Inj) 25 mg Q6H PRN IV PUSH 06/15/17 18:15 (Morphine 1 Mg/ ml AGRICULTURAL RESEARCH TECHNOLOGIST) 30 mg UNSCH IV 06/15/17 18:15 AGRICULTURAL RESEARCH TECHNOLOGIST Dosage Infused (Pha) 1 Q8HR .XX 06/15/17 22:00 06/16/17 05:33 (Flagyl) 500 mg Q12H PO 06/16/17 00:00 06/16/17 01:27 Assessment/Plan Problem List: (1) Third trimester ICD Codes: Z34.93 - Encounter for supervision of normal , unspecified , third trimester (2) Gastric pain ICD Codes: R10.9 - Unspecified abdominal pain (3) Substance addiction ICD Codes: F19.20 - Other psychoactive substance dependence, uncomplicated Status: Acute (4) Anemia ICD Codes: D64.9 - Anemia Status: Acute (5) Obesity ICD Codes: E66.9 - Obesity Status: Acute (6) bradycardia, delivered ICD Codes: O76 - Abnormality in heart rate and rhythm complicating labor and delivery Plan: pt. w/ bradycardia. condition d/w mother. cd d/w pt. risks/ benefits and alternatives d/w w/ pt. w/ nurses present all ? answered. pt. show understanding and give verbal consent for stat cd. Assessment and Plan 23 hour observation for o24 hour protein, LFTS, platelets and BPP hold lovenox for anticipated dental appointment Friday sequentials diet as tolerated subutex and celexa ambien and vistaril. 06/15/17 extend observation to obtain 24 hour urine and BPP weigh patient continue medications. betamethasone. 06/16/17 0800 Flagyl for C diff venifer for anemia resume luvonox dc AGRICULTURAL RESEARCH TECHNOLOGIST and whitehead after william Méndez,Jennifer Smith MD Jun 16, 2017 08:37
[2017-06-16] MEDS: CITALOPRAM HYDROBROMIDE 40 MG TAB PO SCH (09:56)
[2017-06-16] MEDS: BUPRENORPHINE HCL 8 MG SUBLINGUAL TAB SL SCH ×2 (09:56→20:46)
[2017-06-16] MEDS: PANTOPRAZOLE SOD 40 MG DELAYED RELEASE TAB PO SCH (09:56)
[2017-06-16] MEDS ORDERED: IRON SUCROSE 100 MG/5 ML VIAL IV PUSH ONE (10:00)
[2017-06-16] MEDS ORDERED: ENOXAPARIN SODIUM 40 MG/0.4 ML SYRINGE SQ SCH (10:00)
[2017-06-16] MEDS ORDERED: IRON SUCROSE INJ 200 MG in SODIUM CHLORIDE 0.9% INJ 100 ML IV ONE ×2 (12:00→12:45)
[2017-06-16 12:50] VITALS: BP 104/56; PULSE 65; RESP 16; TEMP 98.2
[2017-06-16 14:50] VITALS: BP 112/68; PULSE 70; RESP 20; TEMP 97.9
[2017-06-16] MEDS: IBUPROFEN 600 MG TAB PO PRN ×2 (14:50→20:15)
[2017-06-16] MEDS: oxyCODONE/ACETAMINOPHEN 5 MG/325 MG TAB PO PRN ×2 (14:50→20:15)
[2017-06-16] MEDS ORDERED: MEASLES, MUMPS, RUBELLA VACCINE 0.5 ML VIAL SQ ONE (16:00)
[2017-06-16] MEDS ORDERED: DIPHTH/TETANUS/ACEL PERTUSSIS (BOOSTER) 0.5 ML VIAL/PFS IM ONE (16:00)
[2017-06-16] MEDS: ENOXAPARIN SODIUM 40 MG/0.4 ML SYRINGE SQ SCH (16:55)
[2017-06-16 20:00] VITALS: BP 107/54; PULSE 76; RESP 18; TEMP 98.2
[2017-06-16] MEDS ORDERED: CETIRIZINE HCL SYRUP 10 MG/10 ML UDC PO ONE (21:45)
[2017-06-17] MEDS: metroNIDAZOLE 500 MG TAB PO SCH ×2 (00:43→12:22)
[2017-06-17] MEDS: IBUPROFEN 600 MG TAB PO PRN ×3 (04:44→20:07)
[2017-06-17] MEDS: oxyCODONE/ACETAMINOPHEN 5 MG/325 MG TAB PO PRN (04:44)
[2017-06-17 04:58] LABS: HEMATOCRIT 23.3 % (35.0-46.0); HEMOGLOBIN 7.9 GM/DL (11.6-15.3); MEAN CELL VOLUME 81.9 FL (80.0-100.0); MEAN CORPUSCULAR HEMOGLOBIN 27.9 PG (27.0-34.0); MEAN CORPUSCULAR HGB CONC 34.1 % (32.0-36.0); MEAN PLATELET VOLUME 8.2 FL (7.0-11.0); PLATELET COUNT 203 TH/MM3 (150-450); RED BLOOD COUNT 2.85 MIL/MM3 (4.00-5.30); RED CELL DISTRIBUTION WIDTH 16.1 % (11.6-17.2); WHITE BLOOD COUNT 11.1 TH/MM3 (4.0-11.0)
[2017-06-17 08:00] VITALS: BP_SYST 112; BP_SYST 115; BP_SYST 128; BP_DIAS 64; BP_DIAS 69; PULSE 60; RESP 18; TEMP 98.3
--- NOTE | 2017-06-17 08:08 | HHI.OB ---
Subjective Post Operative Day: 2 Remarks uncomfortable and sweaty states got up 5 times yesterday no N V Objective Vitals/I&O Vital Signs Date Time Temp Pulse Resp B/P (MAP) Pulse Ox O2 Delivery O2 Flow Rate FiO2 06/16/17 20:00 98.2 76 18 107/54 (71) 06/16/17 14:50 97.9 70 20 112/68 (83) 06/16/17 12:50 98.2 65 16 06/16/17 12:50 104/56 (72) 06/16/17 12:00 18 06/16/17 08:15 98.0 76 16 100/57 (71) Result Diagram: 06/17/17 0446 06/14/17 1803 Objective Remarks GENERAL: Well-nourished, well-developed patient. diaphoretic CARDIOVASCULAR: Regular rate and rhythm without murmurs, gallops, or rubs. RESPIRATORY: Breath sounds equal bilaterally. No accessory muscle use. ABDOMEN/GI: Abdomen soft, non-tender, bowel sounds present. Incision: Clean, seroma on left side draining through skin and not purulent Fundus: Firm, tender at umbilicus. GENITOURINARY: Light to moderate bleeding. EXTREMITIES: No cyanosis edema still pronounced but much less than before Medications and IVs Current Medications Medications (Trade) Dose Ordered Sig/Manuel Route Start Time Stop Time Status Last Admin Lactated Ringer's 1,000 ml @ 125 mls/hr Q8H IV 06/14/17 15:00 06/16/17 05:34 (Carafate Liq) 1 gm ACHS PO 06/14/17 21:00 06/16/17 20:46 (Pill Splitter) 1 ea UNSCH PRN OTHER 06/14/17 18:30 (Tylenol) 650 mg Q4H PRN PO 06/14/17 23:45 06/14/17 23:44 (NS Flush) 2 ml BID IV FLUSH 06/15/17 21:00 (NS Flush) 2 ml UNSCH PRN IV FLUSH 06/15/17 17:45 (Mylicon Chew) 80 mg QID PRN PO 06/15/17 17:45 06/16/17 20:50 (Motrin) 600 mg Q6H PRN PO 06/15/17 17:45 06/17/17 04:44 (Percocet 5-325 Mg) 1 tab Q4H PRN PO 06/15/17 17:45 (Percocet 5-325 Mg) 2 tab Q4H PRN PO 06/15/17 17:45 06/17/17 04:44 (January-Colace) 2 tab Q12H PRN PO 06/15/17 17:45 (Ambien) 5 mg HS PRN PO 06/15/17 17:45 (Zofran Inj) 4 mg Q6H PRN IV PUSH 06/15/17 17:45 (Buprenorphine) 8 mg BID SL 06/15/17 21:00 06/16/17 20:46 (Protonix) 40 mg DAILY PO 06/16/17 09:00 06/16/17 09:56 (CeleXA) 40 mg DAILY PO 06/16/17 09:00 06/16/17 09:56 (Narcan Inj) 0.4 mg UNSCH PRN IV PUSH 06/15/17 18:15 (Benadryl Inj) 25 mg Q6H PRN IV PUSH 06/15/17 18:15 (Morphine 1 Mg/ ml RADIO MACHINIST) 30 mg UNSCH IV 06/15/17 18:15 RADIO MACHINIST Dosage Infused (Pha) 1 Q8HR .XX 06/15/17 22:00 06/16/17 12:00 (Flagyl) 500 mg Q12H PO 06/16/17 00:00 06/17/17 00:43 (Lovenox Inj) 40 mg Q24H SQ 06/16/17 18:00 06/16/17 16:55 Assessment/Plan Problem List: (1) Third trimester ICD Codes: Z34.93 - Encounter for supervision of normal , unspecified , third trimester (2) Gastric pain ICD Codes: R10.9 - Unspecified abdominal pain (3) Substance addiction ICD Codes: F19.20 - Other psychoactive substance dependence, uncomplicated Status: Acute (4) Anemia ICD Codes: D64.9 - Anemia Status: Acute (5) Obesity ICD Codes: E66.9 - Obesity Status: Acute (6) bradycardia, delivered ICD Codes: O76 - Abnormality in heart rate and rhythm complicating labor and delivery Plan: pt. w/ bradycardia. condition d/w mother. cd d/w pt. risks/ benefits and alternatives d/w w/ pt. w/ nurses present all ? answered. pt. show understanding and give verbal consent for stat cd. Assessment and Plan 23 hour observation for o24 hour protein, LFTS, platelets and BPP hold lovenox for anticipated dental appointment Friday sequentials diet as tolerated subutex and celexa ambien and vistaril. 06/15/17 extend observation to obtain 24 hour urine and BPP weigh patient continue medications. betamethasone. 06/16/17 0800 Flagyl for C diff venifer for anemia resume luvonox dc RADIO MACHINIST and whitehead after noon 06/17/17 0800 post op anemia pain control reasonable seroma draining--watch edema improved but continue lovenox for hospital stay on flagyl now for 36 hours will repeat cdiff assay on next stool Jennifer Méndez MD Jun 17, 2017 08:08
[2017-06-17] MEDS ORDERED: ENOXAPARIN SODIUM 40 MG/0.4 ML SYRINGE SQ SCH (08:15)
[2017-06-17] MEDS: SUCRALFATE 1 GM/10 ML CUP PO SCH ×4 (09:28→20:06)
[2017-06-17] MEDS: BUPRENORPHINE HCL 8 MG SUBLINGUAL TAB SL SCH ×2 (09:28→20:07)
[2017-06-17] MEDS: PANTOPRAZOLE SOD 40 MG DELAYED RELEASE TAB PO SCH (09:28)
[2017-06-17] MEDS: CITALOPRAM HYDROBROMIDE 40 MG TAB PO SCH (09:29)
[2017-06-17] MEDS: SODIUM CHLORIDE 0.9% FLUSH 10 ML FLUSH IV FLUSH SCH (09:29)
[2017-06-17] MEDS ORDERED: IRON SUCROSE INJ 100 MG in SODIUM CHLORIDE 0.9% INJ 100 ML IV ONE (10:00)
[2017-06-17] MEDS: PCA - TOTAL MG MORPHINE DELIVERED PER SHIFT SCH (14:27)
[2017-06-17] MEDS: LACTATED RINGER'S 1000 ML INJ 1,000 ML IV SCH (14:27)
[2017-06-17] MEDS: ENOXAPARIN SODIUM 40 MG/0.4 ML SYRINGE SQ SCH (18:02)
[2017-06-17 20:00] VITALS: BP 119/77; PULSE 79; RESP 18; TEMP 98.2
[2017-06-18] MEDS: metroNIDAZOLE 500 MG TAB PO SCH ×2 (05:00→18:01)
[2017-06-18 05:53] LABS: AUTOMATED NEUTROPHIL # 6.6 TH/MM3 (1.8-7.7); BASOPHIL % 0.3 % (0.0-2.0); EOSINOPHIL # 0.2 TH/MM3 (0-0.4); EOSINOPHIL % 2.3 % (0.0-4.0); HEMATOCRIT 23.7 % (35.0-46.0); LYMPH % 25.2 % (9.0-44.0); LYMPHOCYTE # 2.6 TH/MM3 (1.0-4.8); MEAN CELL VOLUME 83.1 FL (80.0-100.0); MEAN CORPUSCULAR HEMOGLOBIN 27.9 PG (27.0-34.0); MEAN CORPUSCULAR HGB CONC 33.6 % (32.0-36.0); MEAN PLATELET VOLUME 7.9 FL (7.0-11.0); MONO % 8.3 % (0.0-8.0); MONOCYTE # 0.9 TH/MM3 (0-0.9); NEUT % 63.9 % (16.0-70.0); PLATELET COUNT 220 TH/MM3 (150-450); RED BLOOD COUNT 2.85 MIL/MM3 (4.00-5.30); WHITE BLOOD COUNT 10.3 TH/MM3 (4.0-11.0)
[2017-06-18] MEDS: PCA - TOTAL MG MORPHINE DELIVERED PER SHIFT SCH ×3 (07:06→19:17)
[2017-06-18] MEDS: SODIUM CHLORIDE 0.9% FLUSH 10 ML FLUSH IV FLUSH SCH ×2 (07:06→19:16)
[2017-06-18] MEDS: LACTATED RINGER'S 1000 ML INJ 1,000 ML IV SCH ×2 (07:07→19:17)
[2017-06-18 08:00] VITALS: BP 110/66; PULSE 63; RESP 20; TEMP 98.1
[2017-06-18] MEDS: BUPRENORPHINE HCL 8 MG SUBLINGUAL TAB SL SCH ×2 (09:07→21:03)
[2017-06-18] MEDS: PANTOPRAZOLE SOD 40 MG DELAYED RELEASE TAB PO SCH (09:07)
[2017-06-18] MEDS: CITALOPRAM HYDROBROMIDE 40 MG TAB PO SCH (09:07)
[2017-06-18] MEDS: SUCRALFATE 1 GM/10 ML CUP PO SCH ×4 (09:07→21:03)
--- NOTE | 2017-06-18 09:55 | HHI.OB ---
Subjective Post Operative Day: 3 Remarks miserable being isolated from her infaint pain better and walking better Objective Vitals/I&O Vital Signs Date Time Temp Pulse Resp B/P (MAP) Pulse Ox O2 Delivery O2 Flow Rate FiO2 06/18/17 08:00 63 110/66 (81) 06/18/17 08:00 98.1 20 06/17/17 20:00 98.2 79 18 119/77 (91) Result Diagram: 06/18/17 0515 06/14/17 1803 Objective Remarks GENERAL: Well-nourished, well-developed patient. diaphoretic CARDIOVASCULAR: Regular rate and rhythm without murmurs, gallops, or rubs. RESPIRATORY: Breath sounds equal bilaterally. No accessory muscle use. ABDOMEN/GI: Abdomen soft, non-tender, bowel sounds present. Incision: Clean, seroma on left side draining through skin and not purulent- -less than on Friday Fundus: Firm, tender at umbilicus. GENITOURINARY: Light to moderate bleeding. EXTREMITIES: No cyanosis edema still pronounced but much less than before Medications and IVs Current Medications Medications (Trade) Dose Ordered Sig/Manuel Route Start Time Stop Time Status Last Admin Lactated Ringer's 1,000 ml @ 125 mls/hr Q8H IV 06/14/17 15:00 06/16/17 05:34 (Carafate Liq) 1 gm ACHS PO 06/14/17 21:00 06/18/17 09:07 (Pill Splitter) 1 ea UNSCH PRN OTHER 06/14/17 18:30 (Tylenol) 650 mg Q4H PRN PO 06/14/17 23:45 06/14/17 23:44 (NS Flush) 2 ml BID IV FLUSH 06/15/17 21:00 06/17/17 09:29 (NS Flush) 2 ml UNSCH PRN IV FLUSH 06/15/17 17:45 (Mylicon Chew) 80 mg QID PRN PO 06/15/17 17:45 06/16/17 20:50 (Motrin) 600 mg Q6H PRN PO 06/15/17 17:45 06/17/17 20:07 (Percocet 5-325 Mg) 1 tab Q4H PRN PO 06/15/17 17:45 (Percocet 5-325 Mg) 2 tab Q4H PRN PO 06/15/17 17:45 06/17/17 04:44 (January-Colace) 2 tab Q12H PRN PO 06/15/17 17:45 (Ambien) 5 mg HS PRN PO 06/15/17 17:45 (Zofran Inj) 4 mg Q6H PRN IV PUSH 06/15/17 17:45 (Buprenorphine) 8 mg BID SL 06/15/17 21:00 06/18/17 09:07 (Protonix) 40 mg DAILY PO 06/16/17 09:00 06/18/17 09:07 (CeleXA) 40 mg DAILY PO 06/16/17 09:00 06/18/17 09:07 (Narcan Inj) 0.4 mg UNSCH PRN IV PUSH 06/15/17 18:15 (Benadryl Inj) 25 mg Q6H PRN IV PUSH 06/15/17 18:15 (Morphine 1 Mg/ ml TECHNICAL SERVICES COORDINATOR) 30 mg UNSCH IV 06/15/17 18:15 TECHNICAL SERVICES COORDINATOR Dosage Infused (Pha) 1 Q8HR .XX 06/15/17 22:00 06/16/17 12:00 (Lovenox Inj) 40 mg Q24H SQ 06/16/17 18:00 06/17/17 18:02 (Flagyl) 500 mg Q12H PO 06/18/17 17:00 Assessment/Plan Problem List: (1) Third trimester ICD Codes: Z34.93 - Encounter for supervision of normal , unspecified , third trimester (2) Gastric pain ICD Codes: R10.9 - Unspecified abdominal pain (3) Substance addiction ICD Codes: F19.20 - Other psychoactive substance dependence, uncomplicated Status: Acute (4) Anemia ICD Codes: D64.9 - Anemia Status: Acute (5) Obesity ICD Codes: E66.9 - Obesity Status: Acute (6) bradycardia, delivered ICD Codes: O76 - Abnormality in heart rate and rhythm complicating labor and delivery Plan: pt. w/ bradycardia. condition d/w mother. cd d/w pt. risks/ benefits and alternatives d/w w/ pt. w/ nurses present all ? answered. pt. show understanding and give verbal consent for stat cd. Assessment and Plan 23 hour observation for o24 hour protein, LFTS, platelets and BPP hold lovenox for anticipated dental appointment Friday sequentials diet as tolerated subutex and celexa ambien and vistaril. 06/15/17 extend observation to obtain 24 hour urine and BPP weigh patient continue medications. betamethasone. 06/16/17 0800 Flagyl for C diff venifer for anemia resume luvonox dc TECHNICAL SERVICES COORDINATOR and whitehead after noon 06/17/17 0800 post op anemia pain control reasonable seroma draining--watch edema improved but continue lovenox for hospital stay on flagyl now for 36 hours will repeat cdiff assay on next stool 06/18/17 anemia stable seroma manageable no diarrhea since yes and stool formed has been treated Friday through Friday Infectious disease will allow mom and baby in new room may not need isolation Jennifer Méndez MD Jun 18, 2017 09:55
[2017-06-18] MEDS: IBUPROFEN 600 MG TAB PO PRN ×2 (12:52→21:03)
[2017-06-18] MEDS: ENOXAPARIN SODIUM 40 MG/0.4 ML SYRINGE SQ SCH (18:00)
[2017-06-18 20:33] VITALS: BP 118/77; PULSE 65; RESP 18; TEMP 98.1
[2017-06-19] MEDS: SUCRALFATE 1 GM/10 ML CUP PO SCH ×4 (05:03→20:58)
[2017-06-19] MEDS: metroNIDAZOLE 500 MG TAB PO SCH ×2 (05:04→18:06)
[2017-06-19] MEDS: IBUPROFEN 600 MG TAB PO PRN ×2 (05:04→20:58)
[2017-06-19 09:22] VITALS: BP 120/75; PULSE 83; RESP 18; TEMP 98.2
[2017-06-19] MEDS: BUPRENORPHINE HCL 8 MG SUBLINGUAL TAB SL SCH ×2 (09:24→20:58)
[2017-06-19] MEDS: PANTOPRAZOLE SOD 40 MG DELAYED RELEASE TAB PO SCH (09:24)
[2017-06-19] MEDS: CITALOPRAM HYDROBROMIDE 40 MG TAB PO SCH (09:24)
--- NOTE | 2017-06-19 10:57 | HHI.OB ---
Subjective Post Operative Day: 4 Remarks [place] infectious disease felt it was reasonable to move into new room and have infant with her, because the diarrhea has ceased. This was countermanded by NICU PROJECT FACILITATOR. Mom is with baby intermittently in a neutral room. She did have a formed stool today. WARM wants to negative CDTA or PCR before client can return, but this is not likely given the test. The real concern is whether she is contagious, which she should not be on the flagyl with resolution of symtpoms She requested a psych eval yesterday due to situational depression and prior question of BPD. She met with one of the psychiatrists this am (note pending) and believes that a mood stabilzer is being added. She thinks is is abilify, which is difficult to get covered. Alternatives could be lamictal, latuda. ( She is not tolerant of seroquel) She continues to have significant serous drainage from the incision--today a lot expressed out. Reassured that tissue with oppose and heal, once the fluid is gone altogether. Objective Vitals/I&O Vital Signs Date Time Temp Pulse Resp B/P (MAP) Pulse Ox O2 Delivery O2 Flow Rate FiO2 06/19/17 09:22 83 18 120/75 (90) 06/19/17 09:22 98.2 06/18/17 20:33 98.1 65 18 118/77 (91) Result Diagram: 06/18/17 0515 Objective Remarks GENERAL: Well-nourished, well-developed patient. diaphoretic CARDIOVASCULAR: Regular rate and rhythm without murmurs, gallops, or rubs. RESPIRATORY: Breath sounds equal bilaterally. No accessory muscle use. ABDOMEN/GI: Abdomen soft, non-tender, bowel sounds present. Incision: Clean, seroma on left side draining through skin and not purulent- -still significant in amount Fundus: Firm, tender at umbilicus. GENITOURINARY: Light to moderate bleeding. EXTREMITIES: No cyanosis edema still pronounced but much less than before Medications and IVs Current Medications Medications (Trade) Dose Ordered Sig/Manuel Route Start Time Stop Time Status Last Admin Lactated Ringer's 1,000 ml @ 125 mls/hr Q8H IV 06/14/17 15:00 06/16/17 05:34 (Carafate Liq) 1 gm ACHS PO 06/14/17 21:00 06/19/17 05:03 (Pill Splitter) 1 ea UNSCH PRN OTHER 06/14/17 18:30 (Tylenol) 650 mg Q4H PRN PO 06/14/17 23:45 06/14/17 23:44 (NS Flush) 2 ml BID IV FLUSH 06/15/17 21:00 06/17/17 09:29 (NS Flush) 2 ml UNSCH PRN IV FLUSH 06/15/17 17:45 (Mylicon Chew) 80 mg QID PRN PO 06/15/17 17:45 06/16/17 20:50 (Motrin) 600 mg Q6H PRN PO 06/15/17 17:45 06/19/17 05:04 (Percocet 5-325 Mg) 1 tab Q4H PRN PO 06/15/17 17:45 (Percocet 5-325 Mg) 2 tab Q4H PRN PO 06/15/17 17:45 06/17/17 04:44 (January-Colace) 2 tab Q12H PRN PO 06/15/17 17:45 (Ambien) 5 mg HS PRN PO 06/15/17 17:45 (Zofran Inj) 4 mg Q6H PRN IV PUSH 06/15/17 17:45 (Buprenorphine) 8 mg BID SL 06/15/17 21:00 06/19/17 09:24 (Protonix) 40 mg DAILY PO 06/16/17 09:00 06/19/17 09:24 (CeleXA) 40 mg DAILY PO 06/16/17 09:00 06/19/17 09:24 (Narcan Inj) 0.4 mg UNSCH PRN IV PUSH 06/15/17 18:15 (Benadryl Inj) 25 mg Q6H PRN IV PUSH 06/15/17 18:15 (Morphine 1 Mg/ ml LABVIEW PROGRAMMER) 30 mg UNSCH IV 06/15/17 18:15 LABVIEW PROGRAMMER Dosage Infused (Pha) 1 Q8HR .XX 06/15/17 22:00 06/16/17 12:00 (Lovenox Inj) 40 mg Q24H SQ 06/16/17 18:00 06/18/17 18:00 (Flagyl) 500 mg Q12H PO 06/18/17 17:00 06/19/17 05:04 Assessment/Plan Problem List: (1) Third trimester ICD Codes: Z34.93 - Encounter for supervision of normal , unspecified , third trimester (2) Gastric pain ICD Codes: R10.9 - Unspecified abdominal pain (3) Substance addiction ICD Codes: F19.20 - Other psychoactive substance dependence, uncomplicated Status: Acute (4) Anemia ICD Codes: D64.9 - Anemia Status: Acute (5) Obesity ICD Codes: E66.9 - Obesity Status: Acute (6) bradycardia, delivered ICD Codes: O76 - Abnormality in heart rate and rhythm complicating labor and delivery Plan: pt. w/ bradycardia. condition d/w mother. cd d/w pt. risks/ benefits and alternatives d/w w/ pt. w/ nurses present all ? answered. pt. show understanding and give verbal consent for stat cd. Assessment and Plan 23 hour observation for o24 hour protein, LFTS, platelets and BPP hold lovenox for anticipated dental appointment Friday sequentials diet as tolerated subutex and celexa ambien and vistaril. 06/15/17 extend observation to obtain 24 hour urine and BPP weigh patient continue medications. betamethasone. 06/16/17 0800 Flagyl for C diff venifer for anemia resume luvonox dc LABVIEW PROGRAMMER and whitehead after noon 06/17/17 0800 post op anemia pain control reasonable seroma draining--watch edema improved but continue lovenox for hospital stay on flagyl now for 36 hours will repeat cdiff assay on next stool 06/18/17 anemia stable seroma manageable no diarrhea since yes and stool formed has been treated Friday through Friday Infectious disease will allow mom and baby in new room may not need isolation 06/19/17 will continue flagyl possibly add mood stabilizer to SSI anticipate continued drainage from inicison for at least a week but should become less each day Had venofir twice and should be able to avoid oral iron. there will be a conference call between ALFA, our case management and infectious disease to reassure ALFA that she is not contagious if not have diarrhea. diazide for her swelling since goal is no longer to breastfeed. Jennifer Méndez MD Jun 19, 2017 10:57
[2017-06-19] MEDS ORDERED: BUPR8SUB SL (11:04)
[2017-06-19] MEDS ORDERED: IBUP-232 PO (11:04)
[2017-06-19] MEDS ORDERED: ARIPiprazole 5 MG TAB PO ONE (12:00)
--- NOTE | 2017-06-19 12:48 | PD.PSY.CON ---
Provisional Diagnosis Admission Date Jun 14, 2017 at 14:24 [place] I. Adjustment disorder with depressed mood, history of polysubstance dependence including cocaine, opiates, cannabis, IV drug user, history of bipolar disorder [place] II. Unspecified personality disorder History of Present Illness Service Psychiatry Consult Requested By Medical team Reason for Consult Symptoms of depression Primary Care Physician No Primary Care Physician HPI The patient is a 26 year-old woman, domiciled and project [place], single , unemployed, with psychiatric history of bipolar disorder, polysubstance dependence, IV drug user, no previous psychiatric hospitalizations, no previous suicide attempts, but poor impulse control, she has been seen by psychiatry in multiple occasions due to drug related issues, she was seen by me in the ER in September 2016 in the context of substance intoxication, she is currently on citalopram 40 mg, Suboxone 8 mg twice daily prescribed by mental health practitioner in her residential facility, she has medical history of hepatitis C , who is now and has been treated for C. difficile diarrhea. Consulted to psychiatry due to symptomatology of depression. On psychiatric evaluation today patient is calm, cooperative and pleasant. She was accompanied by her mother, Neva Reeves, who serve also as a collateral information. The patient reports that she has been feeling sad in the last days "because they are not allowing me to see my baby, and we have been due to my C. difficile". "But, other than that I am feeling fine, I am motivated to continue sobriety, to keep my baby and raised her in the right way". Patient reports that she has been sober now for about 2 months. She states that her has been a little bit turbulent due to a "very complicated relationship with the father of migraine, is a psychopath, drug addict, and he needs to be out of my life". The patient reports that she has been in citalopram 40 mg "that is helping a little bit, but does not help me with anxiety as much as I want". She also has been on Suboxone 8 mg twice daily. Patient is planning to lactate "because I want to give the best of me to my baby". At this moment the patient denies suicidal or homicidal ideation, she denies visual and auditory hallucinations. The patient denies hopelessness , denies helplessness, denies worthlessness, denies anhedonia, denies difficulty with concentration, with his sleep, with appetite. Patient is logical, she is coherent and relevant. No loosening of associations, no ideas of reference, no paranoia, no delusions, no tye present. The patient is fully oriented 3, no agitation, no aggressive behavior, no attention deficit present. Review of Systems Constitutional: DENIES: Diaphoretic episodes, Fatigue, Fever, Weight gain, Weight loss, Chills, Dizziness, Change in appetite, Night Sweats Endocrine: DENIES: Abnorml menstrual pattern, Heat/cold intolerance, Polydipsia , Polyuria, Polyphagia Eyes: DENIES: Blurred vision, Diplopia, Eye inflammation, Eye pain, Vision loss , Photosensitivity, Double Vision Ears, nose, mouth, throat: DENIES: Tinnitus, Hearing loss, Vertigo, Nasal discharge, Oral lesions, Throat pain, Hoarseness, Ear Pain, Running Nose, Epistaxis, Sinus Pain, Toothache, Odynophagia Respiratory: DENIES: Apneas, Cough, Snoring, Wheezing, Hemoptysis, Sputum production, Shortness of breath Cardiovascular: DENIES: Chest pain, Palpitations, Syncope, Dyspnea on Exertion , PND, Lower Extremity Edema, Orthopnea, Claudication Gastrointestinal: DENIES: Abdominal pain, Black stools, Bloody stools, Constipation, Diarrhea, Nausea, Vomiting, Difficulty Swallowing, Anorexia Genitourinary: DENIES: Abnormal vaginal bleeding, Dysmenorrhea, Dyspareunia, Sexual dysfunction, Urinary frequency, Urinary incontinence, Urgency, Hematuria , Dysuria, Nocturia, Vaginal discharge Musculoskeletal: DENIES: Joint pain, Muscle aches, Stiffness, Joint Swelling, Back pain, Neck pain Integumentary: DENIES: Abnormal pigmentation, Pruritus, Rash, Nail changes, Breast masses, Breast skin changes, Nipple discharge Hematologic/lymphatic: DENIES: Bruising, Lymphadenopathy Immunologic/allergic: DENIES: Eczema, Urticaria Neurologic: DENIES: Abnormal gait, Headache, Localized weakness, Paresthesias, Seizures, Speech Problems, Tremor, Poor Balance Psychiatric: COMPLAINS OF: Depression, DENIES: Anxiety, Confusion, Mood changes , Hallucinations, Agitation, Suicidal Ideation, Homicidal Ideation, Delusions Past Family Social History Coded Allergies: No Known Allergies (Verified Adverse Reaction, Unknown, 06/14/17) Per pt. Active Scripts Ibuprofen (Ibuprofen) 600 Mg Tab, 600 MG PO Q6H Y for CRAMPING, #30 TAB Prov:Carbiener,Jennifer Luis MD 06/19/17 Buprenorphine (Buprenorphine) 8 Mg Subl, 4 MG SL BID for maintenance, #14 TAB Prov:Jennifer Méndez MD 06/19/17 Ferrous Sulfate (Ferrous Sulfate) 325 Mg (65 Mg Iron) Tablet, 325 MG PO BIDPC for Nutritional Supplement, #60 TAB 0 Refills Prov:Jose Currie MD, R3 04/18/17 Reported Medications Aspirin (Aspirin Low Dose) 81 Mg Chew, 81 MG CHEW DAILY, TAB 0 Refills 06/14/17 Polyethylene Glycol 3350 Powder (Miralax Powder) 17 Gm Powd, 17 GM PO DAILY for Constipation, #1 CAN 0 Refills Mix and dissolve one measuring cap-ful (17 grams) in water or juice. 06/14/17 Metronidazole (Flagyl) 375 Mg Cap, 375 MG PO BID for Infection, CAP 0 Refills 06/14/17 Enoxaparin Inj (Lovenox Inj) 40 Mg/0.4 Ml Syr, 40 MG SQ DAILY for Blood Clot Prevention, SYRINGE 0 Refills 06/14/17 Vit-Iron Carbonyl ( Plus Iron 29-1 mg) 29 Mg Iron-1 Mg Tab, 1 TAB PO DAILY for Nutritional Supplement, #30 TAB 0 Refills 06/14/17 Citalopram (Citalopram) 40 Mg Tab, 40 MG PO DAILY for Control Depression, #30 TAB 0 Refills 06/14/17 Discontinued Scripts Nitrofurantoin Monohydrate Macrocrystals (Macrobid) 100 Mg Capsule, 100 MG PO BID for Infection, #10 CAP 0 Refills Prov:Jose Currie MD, R3 04/18/17 Citalopram (Citalopram) 20 Mg Tab, 20 MG PO DAILY for Control Depression, #30 TAB 5 Refills Prov:Dimas Baer MD 03/18/17 Citalopram (Citalopram) 10 Mg Tab, 10 MG PO DAILY for Control Depression, #7 TAB 0 Refills Prov:Dimas Baer MD 03/18/17 Current Medications Medications (Trade) Dose Ordered Sig/Manuel Route Start Time Stop Time Status Last Admin Lactated Ringer's 1,000 ml @ 125 mls/hr Q8H IV 06/14/17 15:00 06/16/17 05:34 (Carafate Liq) 1 gm ACHS PO 06/14/17 21:00 06/19/17 05:03 (Pill Splitter) 1 ea UNSCH PRN OTHER 06/14/17 18:30 (Tylenol) 650 mg Q4H PRN PO 06/14/17 23:45 06/14/17 23:44 (NS Flush) 2 ml BID IV FLUSH 06/15/17 21:00 06/17/17 09:29 (NS Flush) 2 ml UNSCH PRN IV FLUSH 06/15/17 17:45 (Mylicon Chew) 80 mg QID PRN PO 06/15/17 17:45 06/16/17 20:50 (Motrin) 600 mg Q6H PRN PO 06/15/17 17:45 06/19/17 05:04 (Percocet 5-325 Mg) 1 tab Q4H PRN PO 06/15/17 17:45 (Percocet 5-325 Mg) 2 tab Q4H PRN PO 06/15/17 17:45 06/17/17 04:44 (January-Colace) 2 tab Q12H PRN PO 06/15/17 17:45 (Ambien) 5 mg HS PRN PO 06/15/17 17:45 (Zofran Inj) 4 mg Q6H PRN IV PUSH 06/15/17 17:45 (Buprenorphine) 8 mg BID SL 06/15/17 21:00 06/19/17 09:24 (Protonix) 40 mg DAILY PO 06/16/17 09:00 06/19/17 09:24 (CeleXA) 40 mg DAILY PO 06/16/17 09:00 06/19/17 09:24 (Narcan Inj) 0.4 mg UNSCH PRN IV PUSH 06/15/17 18:15 (Benadryl Inj) 25 mg Q6H PRN IV PUSH 06/15/17 18:15 (Morphine 1 Mg/ ml DIESEL DINKEY ENGINEER) 30 mg UNSCH IV 06/15/17 18:15 DIESEL DINKEY ENGINEER Dosage Infused (Pha) 1 Q8HR .XX 06/15/17 22:00 06/16/17 12:00 (Flagyl) 500 mg Q12H PO 06/18/17 17:00 06/19/17 05:04 (Lasix) 20 mg DAILY PO 06/19/17 12:00 Family Psych History No family psychiatric history Social History Patient was born and raised in [facility], she is now living in [facility], she is single, unemployed, her highest level of education is high school Patient's Strengths (min. 2) Family support Physical Exam No tremors, no EPS, no psychomotor retardation or agitation Vital Signs Vital Signs Date Time Temp Pulse Resp B/P (MAP) Pulse Ox O2 Delivery O2 Flow Rate FiO2 06/19/17 09:22 83 18 120/75 (90) 06/19/17 09:22 98.2 06/15/17 20:30 98 Mental Status Examination Appearance: Appropriate Consciousness: Alert Orientation: x4 Motor Activity: Normal gait Speech: Unremarkable Language: Adequate Fund of Knowledge: Adequate Attention and Concentration: Adequate Memory: Unremarkable Mood: Sad Affect: Appropriate Thought Process & Associations: Intact Thought Content: Appropriate Hallucination Type: None Delusion Type: None Suicidal Ideation: No Suicidal Plan: No Suicidal Intention: No Homicidal Ideation: No Homicidal Plan: No Homicidal Intention: No Insight: Adequate Judgment: Adequate Assessment & Plan Problem List: (1) Adjustment disorder with depressed mood ICD Codes: F43.21 - Adjustment disorder with depressed mood Assessment & Plan: On psychiatric evaluation today the patient presents with episodic and transient sat mood, anxiety, mostly related with the fact that she has been with her baby due to C. difficile. Other than that, the patient denies hopelessness, denies helplessness, denies anhedonia, denies worthlessness, denies suicidal and homicidal ideation, she denies visual and auditory hallucinations. The patient has extensive history of polysubstance dependence, poor impulse control, clinical significant cluster B personality traits, and she carries a diagnosis of bipolar disorder, with no psychiatric hospitalizations, and no suicidal attempt, but multiple ER visits under [facility] at mostly related with substance abuse. I see the patient at this moment is highly motivated to continue sobriety, she is insightful about drug addiction, in a stage of Action and is currently on Subutex 8 mg twice daily, with 2 months of sobriety and she is also in citalopram 40 mg prescribed by [facility] residential facility. She does not meet criteria for involuntary psychiatric admission at this moment. Current set mood could be related mostly with baby blues/adjustment disorder due to separation with her baby. I agree with current psychotropic regimen, but in my opinion her chances of relapsing in drugs can be decreased by adding a mood stabilizer, like Abilify 5 mg daily or even Depakote 500 mg twice daily, and also a low dose of benzodiazepine if the patient is in a controlled environment and with periodic follow-up by a mental health professional. Brief supportive psychotherapy has been provided to the patient, also motivation and psychoeducation. Consult appreciated Assessment & Plan Estimated LOS: Mike Reyes MD Jun 19, 2017 12:47
[2017-06-19] MEDS: FUROSEMIDE 20 MG TAB PO SCH (13:23)
[2017-06-19] MEDS: PCA - TOTAL MG MORPHINE DELIVERED PER SHIFT SCH ×3 (13:24→22:49)
[2017-06-19] MEDS: LACTATED RINGER'S 1000 ML INJ 1,000 ML IV SCH ×2 (15:00→20:59)
[2017-06-19 20:00] VITALS: BP 110/71; PULSE 82; RESP 18; TEMP 97.9
[2017-06-19] MEDS: SODIUM CHLORIDE 0.9% FLUSH 10 ML FLUSH IV FLUSH SCH (20:59)
[2017-06-20] MEDS: IBUPROFEN 600 MG TAB PO PRN (05:23)
[2017-06-20] MEDS: metroNIDAZOLE 500 MG TAB PO SCH (05:23)
[2017-06-20 07:50] VITALS: BP 131/72; PULSE 66; RESP 18; TEMP 98.2
[2017-06-20] MEDS: CITALOPRAM HYDROBROMIDE 40 MG TAB PO SCH (08:35)
[2017-06-20] MEDS: PANTOPRAZOLE SOD 40 MG DELAYED RELEASE TAB PO SCH (08:36)
[2017-06-20] MEDS: FUROSEMIDE 20 MG TAB PO SCH (08:36)
[2017-06-20] MEDS: BUPRENORPHINE HCL 8 MG SUBLINGUAL TAB SL SCH (08:36)
[2017-06-20] MEDS: SUCRALFATE 1 GM/10 ML CUP PO SCH (09:26)
--- NOTE | 2017-06-20 10:00 | HHI.OB ---
Subjective Post Operative Day: 5 Remarks Doing well physically but emotionally stressed with ongoing c Dff issues understand seroma in incision will leak for a good week or so--this will not be a source of cdiff tolerating anemia well depressed about restricted access to infant, required by NICU but believed unnecessary by our infectious disease team has been seen by our psychiatrist who recommends mood stabilzer and follow up on out patient basis Objective Vitals/I&O Vital Signs Date Time Temp Pulse Resp B/P (MAP) Pulse Ox O2 Delivery O2 Flow Rate FiO2 06/19/17 20:00 97.9 82 18 110/71 (84) Result Diagram: 06/18/17 0515 Objective Remarks GENERAL: Well-nourished, well-developed patient. diaphoretic CARDIOVASCULAR: Regular rate and rhythm without murmurs, gallops, or rubs. RESPIRATORY: Breath sounds equal bilaterally. No accessory muscle use. ABDOMEN/GI: Abdomen soft, non-tender, bowel sounds present. Incision: Clean, seroma on left side draining through skin and not purulent- -still significant in amount Fundus: Firm, tender at umbilicus. GENITOURINARY: Light to moderate bleeding. EXTREMITIES: No cyanosis edema still pronounced but much less than before Medications and IVs Current Medications Medications (Trade) Dose Ordered Sig/Manuel Route Start Time Stop Time Status Last Admin Lactated Ringer's 1,000 ml @ 125 mls/hr Q8H IV 06/14/17 15:00 06/16/17 05:34 (Carafate Liq) 1 gm ACHS PO 06/14/17 21:00 06/20/17 09:26 (Pill Splitter) 1 ea UNSCH PRN OTHER 06/14/17 18:30 (Tylenol) 650 mg Q4H PRN PO 06/14/17 23:45 06/14/17 23:44 (NS Flush) 2 ml BID IV FLUSH 06/15/17 21:00 06/17/17 09:29 (NS Flush) 2 ml UNSCH PRN IV FLUSH 06/15/17 17:45 (Mylicon Chew) 80 mg QID PRN PO 06/15/17 17:45 06/16/17 20:50 (Motrin) 600 mg Q6H PRN PO 06/15/17 17:45 06/20/17 05:23 (Percocet 5-325 Mg) 1 tab Q4H PRN PO 06/15/17 17:45 (Percocet 5-325 Mg) 2 tab Q4H PRN PO 06/15/17 17:45 06/17/17 04:44 (January-Colace) 2 tab Q12H PRN PO 06/15/17 17:45 (Ambien) 5 mg HS PRN PO 06/15/17 17:45 (Zofran Inj) 4 mg Q6H PRN IV PUSH 06/15/17 17:45 (Buprenorphine) 8 mg BID SL 06/15/17 21:00 06/20/17 08:36 (Protonix) 40 mg DAILY PO 06/16/17 09:00 06/20/17 08:36 (CeleXA) 40 mg DAILY PO 06/16/17 09:00 06/20/17 08:35 (Narcan Inj) 0.4 mg UNSCH PRN IV PUSH 06/15/17 18:15 (Benadryl Inj) 25 mg Q6H PRN IV PUSH 06/15/17 18:15 (Morphine 1 Mg/ ml FINANCIAL ASSOCIATE) 30 mg UNSCH IV 06/15/17 18:15 FINANCIAL ASSOCIATE Dosage Infused (Pha) 1 Q8HR .XX 06/15/17 22:00 06/16/17 12:00 (Flagyl) 500 mg Q12H PO 06/18/17 17:00 06/20/17 05:23 (Lasix) 20 mg DAILY PO 06/19/17 12:00 06/20/17 08:36 Assessment/Plan Problem List: (1) Third trimester ICD Codes: Z34.93 - Encounter for supervision of normal , unspecified , third trimester (2) Gastric pain ICD Codes: R10.9 - Unspecified abdominal pain (3) Substance addiction ICD Codes: F19.20 - Other psychoactive substance dependence, uncomplicated Status: Acute (4) Anemia ICD Codes: D64.9 - Anemia Status: Acute (5) Obesity ICD Codes: E66.9 - Obesity Status: Acute (6) bradycardia, delivered ICD Codes: O76 - Abnormality in heart rate and rhythm complicating labor and delivery Plan: pt. w/ bradycardia. condition d/w mother. cd d/w pt. risks/ benefits and alternatives d/w w/ pt. w/ nurses present all ? answered. pt. show understanding and give verbal consent for stat cd. Assessment and Plan 23 hour observation for o24 hour protein, LFTS, platelets and BPP hold lovenox for anticipated dental appointment Friday sequentials diet as tolerated subutex and celexa ambien and vistaril. 06/15/17 extend observation to obtain 24 hour urine and BPP weigh patient continue medications. betamethasone. 06/16/17 0800 Flagyl for C diff venifer for anemia resume luvonox dc FINANCIAL ASSOCIATE and whitehead after noon 06/17/17 0800 post op anemia pain control reasonable seroma draining--watch edema improved but continue lovenox for hospital stay on flagyl now for 36 hours will repeat cdiff assay on next stool 06/18/17 anemia stable seroma manageable no diarrhea since yes and stool formed has been treated Friday through Friday Infectious disease will allow mom and baby in new room may not need isolation 06/19/17 will continue flagyl possibly add mood stabilizer to SSI anticipate continued drainage from inicison for at least a week but should become less each day Had venofir twice and should be able to avoid oral iron. there will be a conference call between WARM, our case management and infectious disease to reassure WARM that she is not contagious if not have diarrhea. diazide for her swelling since goal is no longer to breastfeed. 06/20/17 Ready for discharge if will be accepted by WARM--attempting to have reassurance provided by case management here so that WARM no concerned about cdiff risk to other residents can care for draining seroma on her own no more need for lovenox medications as written RTO 1 week to see Honey follow up with mental health through Jennifer Suarez MD Jun 20, 2017 10:00
--- NOTE | 2017-06-20 10:02 | HHI.DCPOC ---
Discharge Care Plan Report Symptoms to Your Doctor -Temperature above 100.5 degrees -Redness, of incision or excessive or foul smelling drainage -Unusual pain or calf pain -Increased vaginal bleeding -Painful or difficulty urinating -Feelings of extreme sadness or anxiety after 2 weeks Goals to Promote Your Health * To prevent worsening of your condition and complications * To maintain your health at the optimal level Directions to Meet Your Goals Take your medications as prescribed Follow your dietary instruction Follow activity as directed Ensure plenty of rest for recovery Drink fluids for hydration Keep your appointments as scheduled Take your immunizations and boosters as scheduled If your symptoms worsen call your PCP, if no PCP go to Urgent Care Center or Emergency Room Smoking is Dangerous to Your Health. Avoid second hand smoke Call the 24-hour crisis hotline for domestic abuse at Jennifer Méndez MD Jun 20, 2017 10:02
[2017-06-20] MEDS ORDERED: ABIL10TA8 PO (10:18)
== END 2017-06-20 13:32 | disposition short-term general hospital (02) | DRG 765 ==
LOC: HOBED 13:18 → EDSTATUS 14:20 → OBSVTOIN 14:24 → H2EA 14:24 → H1EA 06-15 21:21
PROVIDERS: ADMIT Obstetrics & Gynecology; ATTEND Obstetrics & Gynecology
PROC: 10D00Z1 Extraction of Products of Conception, Low, Open Approach (ICD-10-PCS; principal; 2017-06-15)
PROC: 3E0T3BZ Introduction of Anesthetic Agent into Peripheral Nerves and Plexi, Percutaneous Approach (ICD-10-PCS; 2017-06-15)
PROC: 3E033GC Introduction of Other Therapeutic Substance into Peripheral Vein, Percutaneous Approach (ICD-10-PCS; 2017-06-16)
DX: O12.04 Gestational edema, complicating childbirth (principal); A04.72 Enterocolitis due to Clostridium difficile, not specified as recurrent; O99.324 Drug use complicating childbirth; E66.9 Obesity, unspecified; F19.20 Other psychoactive substance dependence, uncomplicated; O98.42 Viral hepatitis complicating childbirth; O26.893 Other specified pregnancy related conditions, third trimester; O99.214 Obesity complicating childbirth; Z68.36 Body mass index [BMI] 36.0-36.9, adult; O76 Abnormality in fetal heart rate and rhythm complicating labor and delivery; O69.2XX0 Labor and delivery complicated by other cord entanglement, with compression, not applicable or unspecified; B19.20 Unspecified viral hepatitis C without hepatic coma; O99.02 Anemia complicating childbirth; D64.9 Anemia, unspecified; O90.2 Hematoma of obstetric wound; O99.344 Other mental disorders complicating childbirth; F31.9 Bipolar disorder, unspecified; F43.21 Adjustment disorder with depressed mood; Z37.0 Single live birth; Z3A.35 35 weeks gestation of pregnancy
CPT/HCPCS: 59025; 74018; 76819; 80053; 80076; 80307; 81001; 82248; 82570; 84156; 84550; 85025; 85027; 86850; 86900; 86901; 87493; 90715; 99285; G0481; J0131; J0295; J0330; J0690; J0702; J1100; J1650; J1756; J1885; J2060; J2270; J2405; J2590; J3010; J3410; J7120